=== PATIENT | female | born 1955 | race Caucasian/White ===

== ENCOUNTER → 2016-11-01 | Outpatient (CLI) | payer MEDICARE ==
--- NOTE | 2016-11-01 18:46 | CT ---
EXAMINATION TYPE: CT chest w con DATE OF EXAM: 11/01/2016 6:22 PM COMPARISON: 07/31/2016 HISTORY: Follow-up breast cancer. CT DLP: 309.00 mGycm Automated exposure control for dose reduction was used. CONTRAST: CT scan of the chest is performed with IV Contrast, patient injected with 100 mL of Omnipaque 300. FINDINGS: There is mild pleural thickening on the right lateral chest wall. There is no sign of a pulmonary mas s. There is no pleural effusion. Heart is enlarged. There are no hilar masses. I see no filling defec ts in the pulmonary arteries. There is no pericardial effusion. Thoracic aorta is atheromatous. There is no evidence of aortic dissection. There is no mediastinal adenopathy. There is mild linear densit y in the lingula left upper lobe. There is a 2 cm rounded hypodensity in the left lobe of the liver w ith surrounding enhancement. There is a similar lesion in the lateral right lobe as well. The entire liver is not included on this exam. Left mastectomy is noted. I see no bony destructive process. Ther e are numerous osteoblastic changes in the thoracic vertebra. IMPRESSION: Osteoblastic changes in the thoracic spine similar to old exam. There is a 2 cm rounded lesion in the superior left lobe of the liver that is increased compared to l ast CT scan and suggestive of metastatic disease. There is a similar appearing 2 cm rounded lesion in the lateral right lobe of the liver also consistent with metastatic disease. Stable bilateral pleural and pulmonary infiltrates compared to old exam.
== END | disposition home or self-care (01) ==
LOC: RADCTMAIN 16:40
PROVIDERS: ATTEND Internal Medicine Hematology & Oncology
DX: C50.919 Malignant neoplasm of unspecified site of unspecified female breast (principal); R91.8 Other nonspecific abnormal finding of lung field
CPT/HCPCS: 71260; Q9967

== ENCOUNTER → 2017-01-21 | Outpatient (CLI) | payer MEDICARE ==
[2017-01-21 11:04] LABS: Blood Urea Nitrogen 12 mg/dL (7-17); Non-African American GFR(MDRD) >60 (>60 ml/min/1.73 sqM)
--- NOTE | 2017-01-21 12:58 | CT ---
EXAMINATION TYPE: CT ChestAbdPelvis w con DATE OF EXAM: 01/21/2017 12:36 PM COMPARISON: 11/01/2016 and 07/31/2016 HISTORY: 61-year-old female with bilateral Breast CA TECHNIQUE: Contiguous axial scanning of the chest, abdomen, and pelvis performed with IV Contrast, pa tient injected with 100 mL of Omnipaque 300. Delayed images through the kidneys were obtained. Justice l/sagittal reconstructions performed. CT DLP: 407.9 mGycm Automated exposure control for dose reduction was used. FINDINGS: CHEST: The patient is status post bilateral mastectomies. Heart is upper limits of normal in size without pericardial effusion. Mild coronary vessel calcificat ions are present. Variant direct takeoff of the left vertebral artery directly from the aortic arch. Mild atherosclerot ic arch calcifications. No thoracic lymphadenopathy seen. Stable pleural-parenchymal scarring at the peripheral right base. An area of pleural-based thickening along the lateral lower right lung measures 2.4 cm AP, unchanged from 07/31/2016. Stable strandy scar ring at the anterior left midlung. Mild biapical pleural-parenchymal scarring. No consolidation or pl eural effusion. ABDOMEN: A 2.1 cm hypodense lesion within the left hepatic dome has increased in size from 11/01/2016 where it measured 1.5 cm. An adjacent 1.2 cm hypodense lesion and a third 8 mm hypodense lesion left hepatic l obe are new/increased from 11/01/2016 and were not seen on 07/31/2016. A 1.3 cm hypodense lesion periph eral right liver lobe is unchanged from 11/01/2016 but larger from 07/31/2016. Portal venous system is patent. No biliary ductal dilatation. Gallbladder, right adrenal gland, right kidney with extrarenal pelvis, and left kidney appear within normal limits. The spleen and pancreas appear within normal limits. Mild thickening of the left adren al gland without discrete nodularity is unchanged. Moderate atherosclerotic calcifications within the abdominal aorta and iliac arteries without aneurys m. No dilated small bowel, free fluid, or free air. Moderate stool within the colon with oral contrast progressed to this distal transverse colon. No per icolonic inflammatory change seen. The sigmoid colon is redundant. Pelvis: Bladder is urine distended. Pelvic phleboliths are noted. Uterus is present. Prominent left parauteri ne varices again demonstrated. Both ovaries are seen. No abnormal fluid collection the pelvis or pelv ic lymphadenopathy. Bones: Diffuse osteoblastic metastases redemonstrated without appreciable change. IMPRESSION: 1. INCREASING HEPATIC METASTATIC DISEASE NOW WITH A TOTAL OF 4 LIVER LESIONS. THE LEFT HEPATIC DOME L ESION NOW MEASURES 2.1 CM, INCREASED FROM 1.5 CM ON 11/01/2016 AND 2 ADDITIONAL LEFT LOBE LESIONS ARE NEW FROM 07/31/2016. 2. STABLE PLEURAL-BASED SOFT TISSUE THICKENING ALONG THE LATERAL RIGHT LOWER LUNG COMPARED TO 07/31 MEASURING 2.4 CM. STABILITY FAVORS A BENIGN ETIOLOGY SUCH POST TREATMENT CHANGE. CONTINUED F OLLOW-UP RECOMMENDED. 3. DIFFUSE OSTEOBLASTIC METASTASES, UNCHANGED.
== END | disposition home or self-care (01) ==
LOC: RADCTMAIN 10:08
PROVIDERS: ATTEND Internal Medicine Hematology & Oncology
DX: C78.7 Secondary malignant neoplasm of liver and intrahepatic bile duct (principal); C79.51 Secondary malignant neoplasm of bone; C50.919 Malignant neoplasm of unspecified site of unspecified female breast; K76.89 Other specified diseases of liver; J98.4 Other disorders of lung
CPT/HCPCS: 82565; 84520; 71260; 74177; 36415; Q9967

== ENCOUNTER → 2017-04-29 | Outpatient (CLI) | payer MEDICARE ==
[~2017-04-29] MED LIST: DENOSUMAB 120 MG/1.7 ML VIAL SQ ONE
[2017-04-29 11:07] VITALS: BP 120/66; PULSE 70; RESP 16; TEMP 98.3
== END | disposition home or self-care (01) ==
LOC: PROCWHC3 10:31 → EDSTATUS 11:00
PROVIDERS: ATTEND Internal Medicine Hematology & Oncology
DX: C50.919 Malignant neoplasm of unspecified site of unspecified female breast (principal); Z17.0 Estrogen receptor positive status [ER+]
CPT/HCPCS: 96372; J0897

== ENCOUNTER → 2017-05-30 | Outpatient (CLI) | payer MEDICARE ==
[2017-05-30 16:48] LABS: Blood Urea Nitrogen 11 mg/dL (7-17); Non-African American GFR(MDRD) >60 (>60 ml/min/1.73 sqM)
--- NOTE | 2017-05-30 17:46 | CT ---
EXAMINATION TYPE: CT ChestAbdPelvis w con DATE OF EXAM: 05/30/2017 COMPARISON: 01/21/2017 HISTORY: Follow up breast cancer CT DLP: 472 mGycm Automated exposure control for dose reduction was used. CONTRAST: CT scan of the chest, abdomen and pelvis is performed with Oral Contrast and with IV Contrast, patien t injected with 100 mL of Omnipaque 300. FINDINGS: There is pulmonary hyperinflation consistent with COPD. There is no evidence of a pulmonary mass. The re is coarsening of interstitial markings in the anterior right upper lobe. There is some pleural thi ckening on the right lateral chest wall. There is no pleural effusion. Heart size is normal. There is no pericardial effusion. There is no mediastinal adenopathy. There are no hilar masses. Pleural thic kening on the right lateral chest wall measures up to 1 cm in thickness. There is a 2 cm hypodensity in the anterior right lobe of the liver. There is a 1.5 cm hypodensity in the anterior left lobe of the liver. There is a 1.5 cm hypodensity in the lateral inferior right lob e of the liver. There is a possible 1 mm hypodensity in the inferior left lobe of the liver. Spleen and pancreas appear normal. Bile ducts are not dilated. There is no adrenal mass. Kidneys show satisfactory contrast opacification. There is no hydronephrosi s. I see no intestinal wall thickening. There are no dilated loops. Bladder distends smoothly. There is no sign of a pelvic mass. There are numerous osteosclerotic foci in the cervical thoracic and lumb ar spine. There are numerous blastic foci also in the bony pelvis and the proximal femurs. Abdominal aorta is atheromatous. There is no compression fracture. There is a mild thoracolumbar dextroscoliosi s. There is multilevel posterior lumbar disc herniation. IMPRESSION: There is slight decrease in size of the hepatic lesions compared to last exam and consist ent with favorable treatment response. Extensive osteoblastic metastatic disease is stable. Atherosclerotic vascular disease. Stable pleural thickening on the right lateral chest wall. COPD. Th ere is stable large posterior L5-S1 disc herniation with spinal stenosis. There are smaller posterior disc herniations and the remainder of the lumbar spine.
== END | disposition home or self-care (01) ==
LOC: RADCTMAIN 16:18
PROVIDERS: ATTEND Internal Medicine Hematology & Oncology
DX: C50.919 Malignant neoplasm of unspecified site of unspecified female breast (principal); K76.9 Liver disease, unspecified; I70.90 Unspecified atherosclerosis; J92.9 Pleural plaque without asbestos; J44.9 Chronic obstructive pulmonary disease, unspecified
CPT/HCPCS: 82565; 84520; 71260; 74177; 36415; Q9967

== ENCOUNTER → 2017-07-29 | Outpatient (CLI) | payer MEDICARE ==
[2017-07-29 15:06] VITALS: BP 124/64; PULSE 75; RESP 16; TEMP 97.9
== END | disposition home or self-care (01) ==
LOC: PROCWHC3 14:56
PROVIDERS: ATTEND Internal Medicine Hematology & Oncology
DX: C50.919 Malignant neoplasm of unspecified site of unspecified female breast (principal)
CPT/HCPCS: 96372; J0897

== ENCOUNTER → 2017-10-29 | Outpatient (CLI) | payer MEDICARE ==
[2017-10-29 14:13] VITALS: BP 86/56; PULSE 78; RESP 18; TEMP 98.1
== END | disposition home or self-care (01) ==
LOC: PROCWHC3 13:49 → EDSTATUS 14:00
PROVIDERS: ATTEND Internal Medicine Hematology & Oncology
DX: C50.919 Malignant neoplasm of unspecified site of unspecified female breast (principal); Z17.0 Estrogen receptor positive status [ER+]
CPT/HCPCS: 96372; J0897

== ENCOUNTER → 2017-12-01 | Outpatient (CLI) | payer MEDICARE ==
[2017-12-01 12:36] LABS: Blood Urea Nitrogen 16 mg/dL (7-17)
--- NOTE | 2017-12-01 14:02 | CT ---
EXAMINATION TYPE: CT ChestAbdPelvis w con DATE OF EXAM: 12/01/2017 COMPARISON: 05/30/2017 and 01/21/2017 HISTORY: 62 year-old female history of breast cancer, suspect metastases, follow-up up scan. TECHNIQUE: Contiguous axial scanning of the chest, abdomen, and pelvis performed with IV Contrast, pa tient injected with 100 mL of Omnipaque 300. Delayed images through the kidneys were obtained. Justice l/sagittal reconstructions performed. CT DLP: 428.5 mGycm Automated exposure control for dose reduction was used. FINDINGS: Chest: Status post bilateral mastectomies. Heart upper limits of normal in size without pericardial effusion. Mild coronary vessel calcification s are present. Aorta normal caliber airway. Direct takeoff of the left vertebral artery directly from the aortic arc h. Mild atherosclerotic arch calcifications are present. No thoracic lymphadenopathy by CT size criteria. Chronic soft tissue thickening along the right cardiophrenic angle at the lung base, subpleural inter stitial densities mid to lower right lung anteriorly and in the inferior lingula suggesting prior rad iation therapy changes. There is mild centrilobular emphysema without consolidation or pleural effusion. ABDOMEN: Numerous new hepatic masses numbering approximately 10-15, the largest areas confluent along the ante rior hepatic dome measuring up to 6.4 cm, axial image 53. Second largest area in the left hepatic dom e measuring 4.1 cm. Largest lesion in the right liver lobe measures 3.2 cm. Portal venous system is patent. No biliary ductal dilatation. Similar mild thickening of the left adrenal gland without discrete nodularity. Gallbladder, right adrenal gland, kidneys, spleen, and pancreas appear within normal limits. Moderate atherosclerotic calcifications infrarenal abdominal aorta and common iliac arteries. No aneu rysm. No mesenteric or retroperitoneal lymphadenopathy. Oral contrast progressed to the splenic flexure. There is moderate stool in the left hemicolon. Mild circumferential wall thickening of the mid sigmoid probably relates to underdistention. Prominent left periuterine varices. Ovaries are visualized as is the uterus. No abnormal fluid collec tion in the pelvis or pelvic lymphadenopathy seen. Bones: Numerous sclerotic lesions throughout the osseous structures are unchanged. Degenerative changes lowe r lumbar spine. IMPRESSION: 1. DISEASE PROGRESSION WITH INCREASE IN SIZE AND NUMBER OF MULTIPLE HEPATIC METASTASES MEASURING UP T O 6.4 CM NOW VERSUS 1.5 CM, PREVIOUSLY. 2. STABLE OSSEOUS METASTATIC DISEASE. 3. STATUS POST BILATERAL MASTECTOMIES. RETICULAR CHANGES IN THE UNDERLYING LUNGS SUGGEST PRIOR RADIAT ION THERAPY CHANGE. 4. INCIDENTAL: PROMINENT LEFT PARAUTERINE VARICES CAN BE SEEN IN THE SETTING OF PELVIC CONGESTION SYN DROME.
== END | disposition home or self-care (01) ==
LOC: RADCTMAIN 11:39
PROVIDERS: ATTEND Internal Medicine Hematology & Oncology
DX: C50.919 Malignant neoplasm of unspecified site of unspecified female breast (principal); C78.7 Secondary malignant neoplasm of liver and intrahepatic bile duct; C79.51 Secondary malignant neoplasm of bone; R91.8 Other nonspecific abnormal finding of lung field; Z90.13 Acquired absence of bilateral breasts and nipples; Z88.8 Allergy status to other drugs, medicaments and biological substances; Z88.6 Allergy status to analgesic agent; Z88.0 Allergy status to penicillin
CPT/HCPCS: 82565; 84520; 71260; 74177; 36415; Q9967

== ENCOUNTER → 2017-12-05 | Outpatient (CLI) | payer MEDICARE ==
--- NOTE | 2017-12-05 13:43 | XR ---
EXAMINATION TYPE: XR mandible complete DATE OF EXAM: 12/05/2017 COMPARISON: NONE HISTORY: Pain TECHNIQUE: 5 views FINDINGS: Mandible appears intact. No destructive changes. No acute fracture. Mandible are without teeth. No acute fracture. No dislocation. IMPRESSION: No acute fracture or diagnostic evidence of metastases. There is air within the oral cavi ty on the lateral view which may correspond to the soft tissue ulceration reported by history.
== END | disposition home or self-care (01) ==
LOC: RADXRMAIN 13:04
PROVIDERS: ATTEND Internal Medicine Hematology & Oncology
DX: C50.919 Malignant neoplasm of unspecified site of unspecified female breast (principal); L27.1 Localized skin eruption due to drugs and medicaments taken internally; K12.31 Oral mucositis (ulcerative) due to antineoplastic therapy; J44.1 Chronic obstructive pulmonary disease with (acute) exacerbation
CPT/HCPCS: 70110

== ENCOUNTER → 2017-12-05 | Outpatient (CLI) | payer MEDICARE ==
--- NOTE | 2017-12-05 21:49 | MR ---
EXAMINATION TYPE: MR brain wo/w con DATE OF EXAM: 12/05/2017 COMPARISON: NONE HISTORY: Headaches and breast cancer TECHNIQUE: Multiplanar, multisequence images of the brain and brainstem is performed without and with IV contras t, utilizing 4 mL intravenous Gadavist . FINDINGS: Diffusion weighted images demonstrate no evidence of a recent infarct or other diffusion ab normality. There is no extra-axial fluid collection or significant white matter signal abnormality. The ventricular system and cisternal spaces are compatible with mild degenerative change. Changes of chronic sinusitis are noted. There is normal enhancement of the vasculature. There is a single focus of abnormal signal within the white matter measuring 3 mm within the left par ietal lobe likely in the basis of remote ischemia. No enhancement Craniocervical junction is maintained. Sella turcica has a normal appearance. There is a extradural enhancing mass paracentrally to the left along the superior margin of the left parietal lobe. Measures approximately 1.4 x 1.2 cm. IMPRESSION: 1. There is a 1.4 x 1.2 cm extradural enhancing mass along the superior margin of the left parietal l obe parasagittally to the left. Abuts the anterior interhemispheric fissure. Most likely related to a small meningioma. However, given the patient's history of malignancy recommend a short-term follow-u p to confirm stability as occasionally a dural metastases could have a similar appearance and is not excluded.
== END | disposition home or self-care (01) ==
LOC: RADMRIMAIN 20:29
PROVIDERS: ATTEND Internal Medicine Hematology & Oncology
DX: G93.89 Other specified disorders of brain (principal); I69.998 Other sequelae following unspecified cerebrovascular disease; R68.84 Jaw pain
CPT/HCPCS: 70553; A9581

== ENCOUNTER → 2018-01-12 | Outpatient (CLI) | payer MEDICARE ==
--- NOTE | 2018-01-12 15:30 | XR ---
Facial bones HISTORY: Swelling 3 views of the facial bones, correlation to mandible 12/05/2017 Bone mineralization is maintained. Orbits are intact. No fracture or dislocation. No air-fluid level in the paranasal sinuses to suggest acute sinusitis. Patient is edentulous. Soft tissue swelling not well seen. IMPRESSION: CT scan may be of increased sensitivity.
== END | disposition home or self-care (01) ==
LOC: RADXRMAIN 14:54
PROVIDERS: ATTEND Nurse Practitioner Adult Health
DX: C50.919 Malignant neoplasm of unspecified site of unspecified female breast (principal); K12.31 Oral mucositis (ulcerative) due to antineoplastic therapy; J44.1 Chronic obstructive pulmonary disease with (acute) exacerbation; L27.1 Localized skin eruption due to drugs and medicaments taken internally
CPT/HCPCS: 70150

== ENCOUNTER → 2018-01-28 | Outpatient (CLI) | payer MEDICARE ==
--- NOTE | 2018-01-29 06:52 | MR ---
EXAMINATION TYPE: MR brain/cspine wo/w DATE OF EXAM: 01/28/2018 COMPARISON: MRI brain December 05, 2017. Nuclear medicine bone scan July 31, 2016. CT chest abdomen a nd pelvis December 01, 2017. HISTORY: History of breast cancer and meningioma brain per order. Symptoms of headaches with dizzines s or hearing loss and neck pain per patient. TECHNIQUE: Multiplanar, multisequence images of the cervical spine, brain, and brainstem are all performed witho ut and with IV contrast, utilizing 4.5 mL intravenous Gadavist . FINDINGS: BRAIN: Diffusion weighted images demonstrate no evidence of a recent infarct or other diffusion abnormality. There is no worrisome extra-axial fluid collection. There is ventricular and sulcal prominence cons istent with mild diffuse age related cerebral atrophy redemonstrated. There are few scattered foci of T2 hyperintensity throughout the white matter again seen, less than 5 lesions are present, there is stable 4 mm posterior left frontal lesion axial image 21 redemonstrated. Midline structures demonstrate normal morphology. The craniocervical junction appears within normal limits. Post contrast images redemonstrate left parasagittal homogeneous enhancing lesion seen best axial image 20 and sagittal image 69 measuring 1.3 cm AP diameter by 1.0 cm transversely consistent w ith small meningioma. No new enhancing lesions are evident. The dural venous sinuses appear patent. T here is mucous retention cyst or polyp in inferior right maxillary sinus redemonstrated. Remainder pa ranasal sinuses are clear. The globes are intact bilaterally. IMPRESSION: Stable 1.3 cm small left parasagittal enhancing lesion favoring meningioma. No new enhanc ing lesions are seen. C-SPINE: FINDINGS: Sagittal images of the cervical spine show the craniocervical junction to appear within nor mal limits. The cervical and upper thoracic spinal cord is normal in course, caliber, and signal. Th ere is levoconvex scoliosis centered in the upper thoracic spine. There is slight grade 1 retrolisthe sis of C5 on C6 and C6 on C7. The vertebral body heights are normal. There is mild disc space narro wing C5-C6 level. There is more moderate disc space narrowing C6-C7 level. Posterior disc herniations are seen at these levels on sagittal images effacing anterior thecal sac. There is hemangioma noted involving the posterior inferior C5 vertebra sagittal image 4. There are multiple round lesions of lo w T1 and T2 hyperintensity without enhancement that correspond to sclerotic metastatic bony lesions m ost prominent in the lower cervical and visualized thoracic spine, largest lesion is anteriorly at T2 level on sagittal image 5. Axial images show the C2-C3 and C3-C4 levels to appear within normal limits. Axial images at C4-C5 level show some uncovertebral facet degenerative changes bilaterally but spinal canal is preserved and bilateral neural foramina are patent. Axial images at C5-C6 level shows central disc protrusion effacing anterior thecal sac. There is unco vertebral facet degenerative changes bilaterally causing mild left greater than right bilateral neura l foraminal narrowing. Axial images at C6-C7 level shows central disc protrusion effacing anterior thecal sac and causing mi [id number] bilateral neural foraminal narrowing. Axial images at C7-T1 level are felt within normal limits. IMPRESSION: Known osseous metastatic disease redemonstrated most prominent in the lower cervical spin e. Multilevel degenerative changes are seen most prominent at C5-C6 and C6-C7 levels as detailed abov e.
== END | disposition home or self-care (01) ==
LOC: RADMRIMAIN 09:05
PROVIDERS: ATTEND Internal Medicine Hematology & Oncology
DX: C79.51 Secondary malignant neoplasm of bone (principal); C50.919 Malignant neoplasm of unspecified site of unspecified female breast; G93.9 Disorder of brain, unspecified; M47.812 Spondylosis without myelopathy or radiculopathy, cervical region
CPT/HCPCS: 70553; 72156; A9581

== ENCOUNTER → 2018-04-22 | Outpatient (CLI) | payer MEDICARE ==
[2018-04-22 08:30] LABS: Blood Urea Nitrogen 15 mg/dL (7-17)
--- NOTE | 2018-04-22 11:06 | CT ---
EXAMINATION TYPE: CT abdomen pelvis w con DATE OF EXAM: 04/22/2018 HISTORY: Breast Cancer CT DLP: 342.20mGycm Automated Exposure Control for Dose Reduction was Utilized. CONTRAST: CT scan of the abdomen and pelvis is performed with oral and with IV Contrast, patient injected with 100 ml mL of Isovue 300. COMPARISON: Prior CT chest abdomen pelvis December 01, 2017 and older studies. FINDINGS: LUNG BASES: Subpleural scarring anteriorly right lung base is redemonstrated. There is additional analisa ear scarring and/or atelectasis anteriorly in both bases redemonstrated. There is trace right pleural fluid anteriorly again seen above diaphragm LIVER/GB: Marked interval improvement in metastatic liver disease from most recent CT. For reference lateral segment left hepatic lobe lesion measures 10 mm long axis anteriorly axial image 15 versus 2. 5 cm prior study image 55. In the region of the interlobar fissure there is more regular low dense le blaze involving left hepatic lobe superior aspect axial image 13 at site of largest lobulated hypodens e lesion on prior exam. Right hepatic lobe lesion laterally measures 1.4 cm on long axis axial image 22 versus 3.3 cm on prior study. PANCREAS: No significant abnormality is seen. SPLEEN: No significant abnormality is seen. ADRENALS: Slight thickening to left adrenal gland is unchanged from several prior studies presumed be nign hyperplasia KIDNEYS: No significant abnormality is seen. BOWEL: Oral contrast reaches level of terminal ileum. There is no suspicious small or large bowel dil atation. There is mild to moderate prominence of fecal material throughout the right left and transve rse colon. UTERUS/ADNEXA: Prominent draining left ovarian veins on prior study are less prominent on current yeison dy. LYMPH NODES: No greater than 1cm abdominal or pelvic lymph nodes are appreciated. OSSEOUS STRUCTURES: There is moderate to advanced disc space narrowing L5-S1 level with vacuum disc p henomenon. Posterior disc herniations L2-L3 through L5-S1 levels on sagittal images 53 and 54 are red emonstrated. There is facet arthropathy lower lumbar levels. Scattered sclerotic foci consistent with known osseous metastatic disease are redemonstrated without significant interval change with multifo rachel involvement of visualized spine and pelvis redemonstrated. OTHER: There is moderate to severe atherosclerotic change of aorta extending into pelvic branch vesse ls. IMPRESSION: Positive treatment response with diminished size and number of hepatic metastatic lesions . Stable osseous metastatic disease..
== END | disposition home or self-care (01) ==
LOC: RADCTMAIN 07:57
PROVIDERS: ATTEND Internal Medicine Hematology & Oncology
DX: C78.7 Secondary malignant neoplasm of liver and intrahepatic bile duct (principal); C79.51 Secondary malignant neoplasm of bone; C50.919 Malignant neoplasm of unspecified site of unspecified female breast; Z88.0 Allergy status to penicillin; Z88.6 Allergy status to analgesic agent; Z91.040 Latex allergy status
CPT/HCPCS: 82565; 84520; 74177; 36415; Q9967

== ENCOUNTER 2018-07-04 09:54 | Inpatient (IN) | payer MEDICARE ==
[2018-07-04] MEDS ORDERED: LEVOFLOXACIN 750MG-D5W PMX 750 MG in DEXTROSE/WATER 1 150ML.BAG IVPB STA (10:34)
[2018-07-04] MEDS ORDERED: HYDROmorphone 1 MG/ML 1 ML SYRINGE IVP STA (10:36)
--- NOTE | 2018-07-04 10:39 | ED ---
General Adult HPI - General Chief complaint: Abdominal Pain Stated complaint: Abdominal pain Time Seen by Provider: 07/04/18 10:00 Source: patient, RN notes reviewed Mode of arrival: ambulatory Limitations: no limitations - History of Present Illness Initial comments: This is a 63-year-old female who was diagnosed with breast cancer 4 and a half years ago. Patient states she recently was started on another chemotherapy regime which she completed one month ago. Patient comes in today because of a 2 day history of right upper quadrant abdominal pain with increased pain with breathing. Patient states she's not really short of breath at all it just hurts to take a deep breath. Patient states she's had a thoracentesis in the past for increased fluid. Patient states she has had some nausea but no vomiting. Patient denies diarrhea. Patient states she also had a fever last night of 101. Patient states she has a little bit of a cough but nothing significant. Patient denies any dysuria hematuria urinary frequency. Patient denies any injury trauma. - Related Data Home Medications Medication Instructions Recorded Confirmed No Known Home Medications 07/04/18 07/04/18 Allergies Allergy/AdvReac Type Severity Reaction Status Date / Time aspirin Allergy Swelling Verified 07/04/18 10:48 latex Allergy Rash/Hives Verified 07/04/18 10:48 Penicillins Allergy Swelling Verified 07/04/18 10:48 Review of Systems ROS Statement: Those systems with pertinent positive or pertinent negative responses have been documented in the HPI. ROS Other: All systems not noted in ROS Statement are negative. Past Medical History Past Medical History: Cancer Additional Past Medical History / Comment(s): constipation, chronic back pain, post menopausal. Breast CA, found lump left breast 2 years ago, did not have work up until this year, current right pleural effusion. History of Any Multi-Drug Resistant Organisms: None Reported Past Surgical History: Tonsillectomy, Tubal Ligation Additional Past Surgical History / Comment(s): breast biopsy, thoracentesis 01/31 Past Psychological History: Anxiety Smoking Status: Former smoker Past Alcohol Use History: None Reported Past Drug Use History: None Reported - Past Family History Mother Family Medical History: Cancer Additional Family Medical History / Comment(s): mother breast and uterine CA General Exam - General Exam Comments Initial Comments: GENERAL: Patient is well-developed and well-nourished. Patient is nontoxic and well- hydrated and is in moderate distress. ENT: Neck is soft and supple. No significant lymphadenopathy is noted. Oropharynx is clear. Moist mucous membranes. Neck has full range of motion without eliciting any pain. EYES: The sclera were anicteric and conjunctiva were pink and moist. Extraocular movements were intact and pupils were equal round and reactive to light. Eyelids were unremarkable. PULMONARY: Unlabored respirations. Good breath sounds bilaterally. No audible rales rhonchi or wheezing was noted. CARDIOVASCULAR: There is a regular rate and rhythm without any murmurs gallops or rubs. ABDOMEN: Patient has right upper quadrant abdominal pain with rebound. SKIN: Skin is clear with no lesions or rashes and otherwise unremarkable. NEUROLOGIC: Patient is alert and oriented x3. Cranial nerves II through XII are grossly intact. Motor and sensory are also intact. Normal speech, volume and content. Symmetrical smile. MUSCULOSKELETAL: Normal extremities with adequate strength and full range of motion. LYMPHATICS: No significant lymphadenopathy is noted PSYCHIATRIC: Normal psychiatric evaluation. Limitations: no limitations Course Vital Signs 07/04/18 07/04/18 09:56 11:10 Temperature 97.7 F Pulse Rate 120 H 94 Respiratory 22 18 Rate Blood Pressure 112/66 131/63 O2 Sat by Pulse 100 100 Oximetry Medical Decision Making - Medical Decision Making EKG shows a sinus rhythm at 90 bpm SD interval is 252 QRS is 74 QT interval 342 QTC is 436. Patient's EKG shows some very slight ST depression in the inferior leads as well as precordial leads V3 through V6. CAT scan of the abdomen and pelvis showed free fluid in the pelvis as well as extensive metastatic disease to the liver which was markedly increased compared to the previous CAT scan. CAT scan of the chest showed no pulmonary was about a right-sided pleural effusion. Patient continued to have right upper quadrant abdominal pain. I spoke with Dr. Sanchez he agreed to admit the patient admitted the patient [facility] [place] and [facility] agreed to admit the patient. - Lab Data Result diagrams: 07/04/18 10:49 07/04/18 10:49 Lab Results 07/04/18 07/04/18 07/04/18 Range/Units 10:49 10:49 10:49 WBC 20.1 H (3.8-10.6) k/uL RBC 4.27 (3.80-5.40) m/uL Hgb 12.9 (11.4-16.0) gm/dL Hct 40.4 (34.0-46.0) % MCV 94.8 (80.0-100.0) fL MCH 30.2 (25.0-35.0) pg MCHC 31.9 (31.0-37.0) g/dL RDW 15.1 (11.5-15.5) % Plt Count 471 H (150-450) k/uL Neutrophils % 88 % Lymphocytes % 6 % Monocytes % 5 % Eosinophils % 0 % Basophils % 0 % Neutrophils # 17.7 H (1.3-7.7) k/uL Lymphocytes # 1.1 (1.0-4.8) k/uL Monocytes # 1.0 (0-1.0) k/uL Eosinophils # 0.1 (0-0.7) k/uL Basophils # 0.1 (0-0.2) k/uL Hypochromasia Slight PT (9.0-12.0) sec INR (<1.2) APTT (22.0-30.0) sec Sodium 135 L (137-145) mmol/L Potassium 4.7 (3.5-5.1) mmol/L Chloride 96 L (98-107) mmol/L Carbon Dioxide 24 (22-30) mmol/L Anion Gap 15 mmol/L BUN 18 H (7-17) mg/dL Creatinine 0.61 (0.52-1.04) mg/dL Est GFR (CKD-EPI)AfAm >90 (>60 ml/min/1.73 sqM) Est GFR (CKD-EPI)NonAf >90 (>60 ml/min/1.73 sqM) Glucose 153 H (74-99) mg/dL Plasma Lactic Acid Will (0.7-2.0) mmol/L Calcium 9.6 (8.4-10.2) mg/dL Total Bilirubin 2.8 H (0.2-1.3) mg/dL AST 87 H (14-36) U/L ALT 87 H (9-52) U/L Alkaline Phosphatase 420 H (38-126) U/L Total Creatine Kinase 63 (30-135) U/L CK-MB (CK-2) <0.2 (0.0-2.4) ng/mL CK-MB (CK-2) Rel Index Troponin I <0.012 (0.000-0.034) ng/mL Total Protein 7.0 (6.3-8.2) g/dL Albumin 4.3 (3.5-5.0) g/dL 07/04/18 07/04/18 Range/Units 10:49 10:49 WBC (3.8-10.6) k/uL RBC (3.80-5.40) m/uL Hgb (11.4-16.0) gm/dL Hct (34.0-46.0) % MCV (80.0-100.0) fL MCH (25.0-35.0) pg MCHC (31.0-37.0) g/dL RDW (11.5-15.5) % Plt Count (150-450) k/uL Neutrophils % % Lymphocytes % % Monocytes % % Eosinophils % % Basophils % % Neutrophils # (1.3-7.7) k/uL Lymphocytes # (1.0-4.8) k/uL Monocytes # (0-1.0) k/uL Eosinophils # (0-0.7) k/uL Basophils # (0-0.2) k/uL Hypochromasia PT 10.7 (9.0-12.0) sec INR 1.1 (<1.2) APTT 25.9 (22.0-30.0) sec Sodium (137-145) mmol/L Potassium (3.5-5.1) mmol/L Chloride (98-107) mmol/L Carbon Dioxide (22-30) mmol/L Anion Gap mmol/L BUN (7-17) mg/dL Creatinine (0.52-1.04) mg/dL Est GFR (CKD-EPI)AfAm (>60 ml/min/1.73 sqM) Est GFR (CKD-EPI)NonAf (>60 ml/min/1.73 sqM) Glucose (74-99) mg/dL Plasma Lactic Acid Will 3.5 H* (0.7-2.0) mmol/L Calcium (8.4-10.2) mg/dL Total Bilirubin (0.2-1.3) mg/dL AST (14-36) U/L ALT (9-52) U/L Alkaline Phosphatase (38-126) U/L Total Creatine Kinase (30-135) U/L CK-MB (CK-2) (0.0-2.4) ng/mL CK-MB (CK-2) Rel Index Troponin I (0.000-0.034) ng/mL Total Protein (6.3-8.2) g/dL Albumin (3.5-5.0) g/dL Disposition Clinical Impression: Metastatic breast cancer, Abdominal pain, Fever, Pleural effusion Disposition: ADMITTED IP TO THIS HOSP Referrals: Ray Ruth DO [Primary Care Provider] - 1-2 days Time of Disposition: 12:56
[2018-07-04] MEDS: ONDANSETRON 4 MG/2 ML VIAL IVP STA ×2 (11:04→12:42)
[2018-07-04 11:07] LABS: Basophils # (A) 0.1 k/uL (0-0.2); Basophils % (A) 0 %; Eosinophils # (A) 0.1 k/uL (0-0.7); Eosinophils % (A) 0 %; HCT 40.4 % (34.0-46.0); HGB 12.9 gm/dL (11.4-16.0); Hypochromasia Slight; Lymphocytes # (A) 1.1 k/uL (1.0-4.8); Lymphocytes % (A) 6 %; MCH 30.2 pg (25.0-35.0); MCHC 31.9 g/dL (31.0-37.0); MCV 94.8 fL (80.0-100.0); Mean Platelet Volume 6.4; Monocytes % (A) 5 %; Neutrophils # (A) 17.7 k/uL (1.3-7.7); Neutrophils % (A) 88 %; Platelet Count 471 k/uL (150-450); RBC 4.27 m/uL (3.80-5.40); RDW 15.1 % (11.5-15.5); WBC 20.1 k/uL (3.8-10.6)
[2018-07-04 11:15] LABS: ALT 87 U/L (9-52); AST 87 U/L (14-36); Albumin 4.3 g/dL (3.5-5.0); Alkaline Phosphatase 420 U/L (38-126); Anion Gap 15 mmol/L; Blood Urea Nitrogen 18 mg/dL (7-17); Calcium 9.6 mg/dL (8.4-10.2); Carbon Dioxide 24 mmol/L (22-30); Chloride 96 mmol/L (98-107); Glucose 153 mg/dL (74-99); Potassium 4.7 mmol/L (3.5-5.1); Sodium 135 mmol/L (137-145); Total Bilirubin 2.8 mg/dL (0.2-1.3)
[2018-07-04 11:21] LABS: INR 1.1 (<1.2); Partial Thromboplastin Time 25.9 sec (22.0-30.0); Prothrombin Time 10.7 sec (9.0-12.0)
[2018-07-04 11:28] LABS: Creatine Kinase 63 U/L (30-135)
[2018-07-04 11:39] LABS: Creatine Kinase MB <0.2 ng/mL (0.0-2.4); Troponin I <0.012 ng/mL (0.000-0.034)
--- NOTE | 2018-07-04 12:24 | CT ---
EXAMINATION TYPE: CT angio chest, CT abdomen pelvis w con DATE OF EXAM: 07/04/2018 11:55 AM COMPARISON: Previous study dated 12/01/[address] scan of the abdomen and pelvis dated 04/22/2018. HISTORY: RUQ pain CT DLP: 84.9 (accession [id number]), 1158.9 (accession [id number]) mGycm Automated exposure control for dose reduction was used. CONTRAST: CTA scan of the thorax is performed with IV Contrast, patient injected with 100 mL of Isovue 370, pul monary embolism protocol. . FINDINGS: There is scarring at the right lung apex. There is pleural thickening and interstitial woods ge in the right middle lobe which may be secondary to post radiation change. There have been bilatera l mastectomies. There is been interval development of a right-sided pleural effusion. There is no significant axillary, internal mammary, mediastinal or hilar adenopathy. There is no evidence of pulmonary embolus. The aorta is normal in caliber without evidence of dissection. Heart size upper limits of normal. The re is no pericardial fluid. There are extensive blastic metastases throughout the vertebra and ribs. These appear relatively stab le compared to previous. There are also blastic metastases of both clavicles and scapula bilaterally. There is also metastatic disease in the pelvis. Within the abdomen, there are extensive metastases within all segments of the liver. These has increa sed markedly from previous. The liver is enlarged measuring 21 cm. The gallbladder is unremarkable. T he spleen is normal in size. There is some fullness in the left adrenal gland, unchanged from previous. There is no definite nodul e. There is a 1 cm low attenuating lesion in the lower pole of the right kidney which does not meet the requirements of simple cyst. This was less obvious on the previous study. The pancreas is unremarkable. There is moderate atheromatous calcification of the visualized arterial tree There is no significant retrocrural peritoneal, iliac or inguinal adenopathy. The uterus and ovaries are not visualized. The bladder is not distended. There is no significant diverticular change and I do not see radiographic evidence of diverticulitis. The appendix is not visualized with certainty. Small bowel loops are normal in caliber. There is a large amount of free fluid in the pelvis. No free air is seen. IMPRESSION: 1. THIS EXAMINATION IS NEGATIVE FOR PULMONARY EMBOLUS. 2. EXTENSIVE METASTATIC DISEASE. THIS HAS MARKEDLY WORSENED WITHIN THE LIVER. 3. INTERVAL DEVELOPMENT OF A RIGHT-SIDED PLEURAL EFFUSION. 4. 1 CM, LOW ATTENUATING LESION IN THE LOWER POLE OF THE RIGHT KIDNEY OF QUESTIONABLE ETIOLOGY. THIS DOES NOT MEET THE REQUIREMENTS OF A SIMPLE CYST. 5. LARGE AMOUNT OF FREE FLUID WITHIN THE PELVIS.
--- NOTE | 2018-07-04 12:31 | XR ---
EXAMINATION TYPE: XR chest 2V DATE OF EXAM: 07/04/2018 HISTORY: Fever. REFERENCE: Previous study dated 02/10/2014. FINDINGS: Lung volumes are prominent. There is a small right-sided pleural effusion. There are chroni c interstitial changes. The heart is mildly prominent. IMPRESSION: 1. COPD. 2. MILD CARDIOMEGALY. 3. SMALL RIGHT-SIDED EFFUSION. 4. CHRONIC INTERSTITIAL CHANGE.
[2018-07-04] MEDS ORDERED: SODIUM CHLORIDE 0.9% 1,000 ML IV ONE (12:56)
[2018-07-04 13:24] LABS: Appearance,Urine Clear (Clear); Bilirubin,Urine Negative (Negative); Blood,Urine Negative (Negative); Cellular Casts,Urine 5 /lpf (0); Color,Urine Yellow; Glucose,Urine (UA) Negative (Negative); Hyaline Casts,Urine 4 /lpf (0-2); Ketones,Urine 1+ (Negative); Leukocyte Esterase,Urine Negative (Negative); Mucus,Urine Rare /hpf; Nitrite,Urine Negative (Negative); Protein,Urine 1+ (Negative); RBC,Urine 2 /hpf (0-5); Squamous Epithelial Cell,Urine 1 /hpf (0-4); WBC,Urine 7 /hpf (0-5)
[2018-07-04 13:50] LABS: Specific Gravity,Urine >1.050 (1.001-1.035)
[2018-07-04] MEDS: MORPHINE SULFATE 4 MG/ML SYRINGE IVP PRN (19:51)
[2018-07-05] MEDS: MORPHINE SULFATE 4 MG/ML SYRINGE IVP PRN ×4 (02:00→22:01)
--- NOTE | 2018-07-05 10:09 | P.CONS ---
History of Present Illness - Reason for Consult Consult date: 07/05/18 Intractable abdominal pain. Metastatic breast cancer - History of Present Illness The patient is a 63-year-old white female, well known to our service. She is followed by Dr. Trinidad in the outpatient setting for metastatic breast cancer. About December 2013 patient noted a right chest lesion and a left breast lump, she had biopsy of a left shoulder lesion 01/12/14 that was positive for metastatic breast adenocarcinoma, she was seen by Dr. Trinidad 01/17/14 and was told her treatment options but hormone and Her2 status were pending. While awaiting results she began having shortness of breath and on 02/02/14 she had thoracentesis with fluid cytology consistent with her breast primary. Ultimately tumor testing results showed a hormone receptor + breast cancer Her 2 negative. The patient was treated with ascites fluid drainage, and was able to discharge. She has since had multiple lines of therapy, including aromatase inhibitors and Faslodex, as well as Ibrance. After progression through those, she has been on Xeloda, and then Taxol most recently. She finished her Taxol in late . She was then placed on a chemo holiday with plans for restaging scans the end of June, with follow-up in the office subsequently. She was last seen in the office 2 weeks ago. The patient states that soon after the office visit she started experiencing some discomfort in the right upper abdomen. This became progressively worse. The pain was also worsened by attempts to take deep breaths. She had some nausea but no overt vomiting and also noted a drop in appetite with some loss of weight. Because of progression and pain which had become intractable, the patient came into the ER. She had not been taking any pain medications at home. CTA of the chest ruled out a pulmonary embolus but showed recurrent right- sided pleural effusion. It also indicated progression of disease in the liver, which is confirmed on CT of the abdomen and pelvis. The patient was therefore admitted for further management. Review of Systems Constitutional: Reports chronic pain, Reports poor appetite, Reports weakness, Reports weight loss (7-8 pounds in the last 2 weeks) Eyes: denies blurred vision, denies pain Ears: deny: decreased hearing, ear discharge, earache, tinnitus Ears, nose, mouth and throat: Denies headache, Denies sore throat Cardiovascular: Reports chest pain, Reports decreased exercise tolerance Respiratory: Reports as per HPI Gastrointestinal: Reports abdominal pain, Reports nausea Genitourinary: Denies dysuria, Denies hematuria Menstruation: Reports postmenopausal Musculoskeletal: Reports as per HPI (Known history of bone metastasis) Integumentary: Denies pruritus, Denies rash Neurological: Reports weakness, Denies numbness Psychiatric: Denies anxiety, Denies depression Endocrine: Reports fatigue, Reports weight change Hematologic/Lymphatic: Reports as per HPI Past Medical History Past Medical History: Cancer Additional Past Medical History / Comment(s): constipation, chronic back pain, post menopausal. Breast CA, found lump left breast 2 years ago, did not have work up until this year, current right pleural effusion. History of Any Multi-Drug Resistant Organisms: None Reported Past Surgical History: Tonsillectomy, Tubal Ligation Additional Past Surgical History / Comment(s): breast biopsy, thoracentesis 01/31 Past Anesthesia/Blood Transfusion Reactions: No Reported Reaction Past Psychological History: Anxiety, Depression Smoking Status: Former smoker Past Alcohol Use History: None Reported Past Drug Use History: None Reported - Past Family History Mother Family Medical History: Cancer Additional Family Medical History / Comment(s): mother breast and uterine CA Father Family Medical History: Congestive Heart Failure (CHF), Coronary Artery Disease (CAD), Diabetes Mellitus Medications and Allergies Home Medications Medication Instructions Recorded Confirmed Type No Known Home Medications 07/04/18 07/04/18 History Allergies Allergy/AdvReac Type Severity Reaction Status Date / Time aspirin Allergy Swelling Verified 07/04/18 10:48 latex Allergy Rash/Hives Verified 07/04/18 10:48 Penicillins Allergy Swelling Verified 07/04/18 10:48 Physical Exam Vitals: Vital Signs Temp Pulse Pulse Resp BP BP Pulse Ox 07/05/18 06:23 98.2 F 90 16 90/50 96 07/05/18 00:00 80 20 07/04/18 19:55 97.7 F 80 20 97/60 97 07/04/18 17:22 88 16 07/04/18 14:19 97.5 F L 88 16 113/71 96 07/04/18 13:59 98.7 F 07/04/18 13:17 85 18 101/60 96 07/04/18 11:10 94 18 131/63 100 Intake and Output 07/04/18 07/05/18 07/05/18 22:59 06:59 14:59 Intake Total 670 300 Balance 670 300 Intake: IV 450 300 Sodium Chloride 0.9% 1, 450 300 000 ml @ 75 mls/hr IV . [id number] ONE Rx#:[id number] Oral 220 Other: # Voids 2 2 - Constitutional General appearance: no acute distress - EENT Eyes: EOMI, PERRLA ENT: hearing grossly normal, normal oropharynx - Neck Neck: no lymphadenopathy - Cardiovascular Rhythm: regular Heart sounds: normal: S1, S2 - Gastrointestinal General gastrointestinal: organomegaly (Liver appears enlarged at least 2-3 fingerbreadths below costal margin), soft Localized gastrointestinal: tender: RUQ - Integumentary Integumentary: normal - Neurologic Neurologic: CNII-XII intact - Musculoskeletal Musculoskeletal: generalized weakness - Psychiatric Psychiatric: A&O x's 3, appropriate affect Results CBC & Chem 7: 07/04/18 10:49 07/04/18 10:49 Labs: Abnormal Lab Results - Last 24 Hours (Table) 07/04/18 07/04/18 07/04/18 Range/Units 10:49 10:49 10:49 WBC 20.1 H (3.8-10.6) k/uL Plt Count 471 H (150-450) k/uL Neutrophils # 17.7 H (1.3-7.7) k/uL Sodium 135 L (137-145) mmol/L Chloride 96 L (98-107) mmol/L BUN 18 H (7-17) mg/dL Glucose 153 H (74-99) mg/dL Plasma Lactic Acid Will 3.5 H* (0.7-2.0) mmol/L Total Bilirubin 2.8 H (0.2-1.3) mg/dL AST 87 H (14-36) U/L ALT 87 H (9-52) U/L Alkaline Phosphatase 420 H (38-126) U/L Ur Specific [place] (1.001-1.035) Urine Protein (Negative) Urine Ketones (Negative) Urine WBC (0-5) /hpf Hyaline Casts (0-2) /lpf Urine Mucus (None) /hpf 07/04/18 Range/Units 13:07 WBC (3.8-10.6) k/uL Plt Count (150-450) k/uL Neutrophils # (1.3-7.7) k/uL Sodium (137-145) mmol/L Chloride (98-107) mmol/L BUN (7-17) mg/dL Glucose (74-99) mg/dL Plasma Lactic Acid Will (0.7-2.0) mmol/L Total Bilirubin (0.2-1.3) mg/dL AST (14-36) U/L ALT (9-52) U/L Alkaline Phosphatase (38-126) U/L Ur Specific [place] >1.050 H (1.001-1.035) Urine Protein 1+ H (Negative) Urine Ketones 1+ H (Negative) Urine WBC 7 H (0-5) /hpf Hyaline Casts 4 H (0-2) /lpf Urine Mucus Rare H (None) /hpf Microbiology - Last 24 Hours (Table) 07/04/18 13:07 Urine Culture - Preliminary Urine,Voided Chest x-ray: report reviewed CT scan - abdomen: report reviewed CT scan - chest: report reviewed CT scan - pelvis: report reviewed Assessment and Plan (1) Neoplasm related pain Narrative/Plan: The patient developed abdominal pain about 2 weeks ago, and has had marked progression since. Imaging studies to prove that this is due to rapid progression of malignancy in the liver. The patient was not on any opioids at home. She has been started on IV morphine, and notes good relief. She will be started on fentanyl 25 g. Depending on her need for breakthrough pain medication subsequently, additional adjustments will be made. She will also be placed on a bowel protocol. Current Visit: Yes Status: Acute Code(s): G89.3 - NEOPLASM RELATED PAIN ( ACUTE) (CHRONIC) SNOMED Code(s): 189486481 (2) Metastatic breast cancer Narrative/Plan: Diagnostic and therapeutic circumstances as related in the HPI. The patient is currently on a chemo holiday with the plans for restaging studies later this month. However computed tomography scan already shows marked progression in the liver, causing her symptoms. I will therefore check tumor markers, and also order a bone scan. At discharge her follow-up with Dr. Trinidad will be moved up Current Visit: Yes Status: Acute Code(s): C50.919 - MALIGNANT NEOPLASM OF UNSP SITE OF UNSPECIFIED FEMALE BREAST SNOMED Code(s): 387409810 (3) Pleural effusion Narrative/Plan: The patient has had a thoracentesis in the past. There appears to be some recurrence of pleural effusion. However the patient was not hypoxic and physical exam was not impressive at this point. Continue to follow. If she has progressive symptoms and repeat thoracentesis will be ordered Current Visit: Yes Status: Acute Code(s): J90 - PLEURAL EFFUSION, NOT ELSEWHERE CLASSIFIED SNOMED Code(s): 27241242 Plan: The case was discussed in detail with the ER physician, and subsequently with the admitting service. Defer to the admitting service for management of her other medical problems
--- NOTE | 2018-07-05 15:49 | P.HPIM ---
History of Present Illness H&P Date: 07/05/18 Chief Complaint: Intractable abdominal pain is a 63-year-old female with a past medical history of metastatic breast cancer who follows with Dr. Trinidad in an OP setting coming to the hospital with a chief complaint of increased abdominal pain for the past couple of weeks. Patient has metastatic breast cancer with metastases to her lung and shoulder. Patient underwent multiple sessions of chemotherapy and currently on a chemo holiday. Patient started to have right upper abdominal pain that has progressively worsened associated with some nausea along with decreased appetite for the past couple of days. She states she tried to take pain medications at home that did not help her and so coming to the ER for intractable abdominal pain. Patient had CT for PE that was negative for pulmonary embolism and CT of the abdomen and pelvis showing extensive metastatic disease in the liver and increased right-sided pleural effusion and also 1 cm lesion in the lower pole of the right kidney of questionable etiology. Currently the patient has been getting IV morphine and she states her pain is under better control compared to yesterday. Oncology Dr. Sanchez has evaluated the patient today. Review of Systems REVIEW OF SYSTEMS: CONSTITUTIONAL : Loss of appetite, generalized weakness and fatigue with weight loss PSYCH: Denies anxiety or depression NEURO: Denies any weakness or numbness VASCULAR: No swelling of lower extremities HEMATOLOGIC: As per HPI. RESPIRATORY: Progressive worsening of shortness of breath INTEGUMENT: no rashes OPHTHALMOLOGIC: No blurry vision and no eye discharge : No dysuria or hematuria DIRECTOR STARS: No bleeding PV CARDIAC: No chest pain , shortness of breath , paroxysmal nocturnal dyspnea MUSCULOSKELETAL : Right shoulder pain GI: As per HPI All 13 review of systems are negative except for the ones mention above. Past Medical History Past Medical History: Cancer Additional Past Medical History / Comment(s): constipation, chronic back pain, post menopausal. Breast CA, found lump left breast 2 years ago, did not have work up until this year, current right pleural effusion. History of Any Multi-Drug Resistant Organisms: None Reported Past Surgical History: Tonsillectomy, Tubal Ligation Additional Past Surgical History / Comment(s): breast biopsy, thoracentesis 01/31 Past Anesthesia/Blood Transfusion Reactions: No Reported Reaction Past Psychological History: Anxiety, Depression Smoking Status: Former smoker Past Alcohol Use History: None Reported Past Drug Use History: None Reported - Past Family History Mother Family Medical History: Cancer Additional Family Medical History / Comment(s): mother breast and uterine CA Father Family Medical History: Congestive Heart Failure (CHF), Coronary Artery Disease (CAD), Diabetes Mellitus Medications and Allergies Home Medications Medication Instructions Recorded Confirmed Type No Known Home Medications 07/04/18 07/04/18 History Allergies Allergy/AdvReac Type Severity Reaction Status Date / Time aspirin Allergy Swelling Verified 07/04/18 10:48 latex Allergy Rash/Hives Verified 07/04/18 10:48 Penicillins Allergy Swelling Verified 07/04/18 10:48 Physical Exam Vitals: Vital Signs Temp Pulse Pulse Resp BP BP Pulse Ox 07/05/18 06:23 98.2 F 90 16 90/50 96 07/05/18 00:00 80 20 07/04/18 19:55 97.7 F 80 20 97/60 97 07/04/18 17:22 88 16 07/04/18 14:19 97.5 F L 88 16 113/71 96 07/04/18 13:59 98.7 F 07/04/18 13:17 85 18 101/60 96 07/04/18 11:10 94 18 131/63 100 07/04/18 09:56 97.7 F 120 H 22 112/66 100 Intake and Output 07/04/18 07/05/18 07/05/18 22:59 06:59 14:59 Intake Total 670 300 Balance 670 300 Intake: IV 450 300 Sodium Chloride 0.9% 1, 450 300 000 ml @ 75 mls/hr IV . [id number] ONE Rx#:[id number] Oral 220 Other: # Voids 2 2 GENERAL EXAM GEN. APPEARANCE: Alert in mild distress HEAD EXAM: Temporal wasting EYE EXAM: No pallor, no icterus ENT EXAM: Mucous membrane is dry NECK EXAM: normal inspection. Absent: tenderness, meningismus, full ROM, lymphadenopathy RESPIRATORY EXAM: Decreased breath sounds bilaterally. Bilateral crackles in the lower lung hunter. CARDIOVASCULAR EXAM: regular rate, normal rhythm, normal heart sounds. Absent : systolic murmur, diastolic murmur, rubs, gallop, clicks GI/ABDOMINAL EXAM: Abdomen is distended. Positive for tenderness in the right upper quadrant. Bowel sounds normal. EXTREMITIES EXAM: No edema. NEUROLOGICAL EXAM: alert, oriented X3, no gross focal neurological deficits PSYCHIATRIC EXAM: normal affect, normal mood SKIN EXAM: warm, dry, intact, normal color. Absent: rash Results CBC & Chem 7: 07/04/18 10:49 07/04/18 10:49 Labs: Abnormal Lab Results - Last 24 Hours (Table) 07/04/18 07/04/18 07/04/18 Range/Units 10:49 10:49 10:49 WBC 20.1 H (3.8-10.6) k/uL Plt Count 471 H (150-450) k/uL Neutrophils # 17.7 H (1.3-7.7) k/uL Sodium 135 L (137-145) mmol/L Chloride 96 L (98-107) mmol/L BUN 18 H (7-17) mg/dL Glucose 153 H (74-99) mg/dL Plasma Lactic Acid Will 3.5 H* (0.7-2.0) mmol/L Total Bilirubin 2.8 H (0.2-1.3) mg/dL AST 87 H (14-36) U/L ALT 87 H (9-52) U/L Alkaline Phosphatase 420 H (38-126) U/L Ur Specific [place] (1.001-1.035) Urine Protein (Negative) Urine Ketones (Negative) Urine WBC (0-5) /hpf Hyaline Casts (0-2) /lpf Urine Mucus (None) /hpf 07/04/18 Range/Units 13:07 WBC (3.8-10.6) k/uL Plt Count (150-450) k/uL Neutrophils # (1.3-7.7) k/uL Sodium (137-145) mmol/L Chloride (98-107) mmol/L BUN (7-17) mg/dL Glucose (74-99) mg/dL Plasma Lactic Acid Will (0.7-2.0) mmol/L Total Bilirubin (0.2-1.3) mg/dL AST (14-36) U/L ALT (9-52) U/L Alkaline Phosphatase (38-126) U/L Ur Specific [place] >1.050 H (1.001-1.035) Urine Protein 1+ H (Negative) Urine Ketones 1+ H (Negative) Urine WBC 7 H (0-5) /hpf Hyaline Casts 4 H (0-2) /lpf Urine Mucus Rare H (None) /hpf Microbiology - Last 24 Hours (Table) 07/04/18 13:07 Urine Culture - Preliminary Urine,Voided Thrombosis Risk Factor Assmnt - Choose All That Apply Each Risk Factor Represents 2 Points: Age 61-74 years Thrombosis Risk Factor Assessment Total Risk Factor Score: 2 Thrombosis Risk Factor Assessment Level: Low Risk Assessment and Plan Assessment: Assessment Intractable abdominal pain with nausea and vomiting Metastatic breast cancer Right pleural effusion Ascites Leukocytosis Thrombocytosis Cachexia Severe protein calorie malnutrition PLAN: Patient has been getting IV morphine and fentanyl patch has been added. We will resume the patient's home medications. Discussed with Dr. Sanchez this morning regarding pain management of the patient. We'll continue with IV hydration and antiemetics for her nausea and vomiting. Further recommendations to follow depending on the progress of the patient. Overall prognosis is very poor.
[2018-07-05] MEDS: DOCUSATE 100 MG CAP PO SCH ×2 (17:25→20:09)
[2018-07-06] MEDS: MORPHINE SULFATE 4 MG/ML SYRINGE IVP PRN ×5 (04:17→20:41)
[2018-07-06 08:07] LABS: Anion Gap 8 mmol/L; Blood Urea Nitrogen 12 mg/dL (7-17); Calcium 9.2 mg/dL (8.4-10.2); Carbon Dioxide 25 mmol/L (22-30); Chloride 102 mmol/L (98-107); Glucose 114 mg/dL (74-99); Sodium 135 mmol/L (137-145)
[2018-07-06 08:10] LABS: Basophils # (A) 0.1 k/uL (0-0.2); Basophils % (A) 0 %; Eosinophils # (A) 0.3 k/uL (0-0.7); Eosinophils % (A) 3 %; HCT 32.8 % (34.0-46.0); HGB 10.6 gm/dL (11.4-16.0); Lymphocytes # (A) 0.9 k/uL (1.0-4.8); Lymphocytes % (A) 7 %; MCH 30.5 pg (25.0-35.0); MCHC 32.4 g/dL (31.0-37.0); Mean Platelet Volume 7.8; Monocytes # (A) 0.7 k/uL (0-1.0); Monocytes % (A) 5 %; Neutrophils # (A) 11.1 k/uL (1.3-7.7); Neutrophils % (A) 84 %; Platelet Count 428 k/uL (150-450); RBC 3.49 m/uL (3.80-5.40); RDW 14.8 % (11.5-15.5); WBC 13.2 k/uL (3.8-10.6)
[2018-07-06 08:14] LABS: Potassium 4.9 mmol/L (3.5-5.1)
[2018-07-06] MEDS: DOCUSATE 100 MG CAP PO SCH ×2 (08:35→20:43)
[2018-07-06 11:25] VITALS: BMI 15.2
--- NOTE | 2018-07-06 11:39 | NM ---
EXAMINATION TYPE: NM bone scan whole body DATE OF EXAM: 07/06/2018 COMPARISON: Prior bone scan 07/31/2016, CT chest and abdomen pelvis 07/04/2018 HISTORY: Bone metastases, metastatic breast cancer Delayed whole-body scanning was performed following the injection of 25.3 mCi Tc 99m MDP. Images acq uired 3 hours post injection. FINDINGS: Multiple foci are present which show some increased intensity is compared to prior exam. Punctate foc i along the sternum were not seen definitively on prior exam. There is a gentle spinal curvature. Foc us of uptake is present along the anterior left fifth rib which appears more intense than prior. Upta ke is noted in the right hip is similar, uptake seen within the spine at what is likely T9, T11 was n ot seen on prior exam and corresponds to blastic foci on CT. Uptake in the left shoulder is more inte nse as compared to prior. Transverse process of T6 on the right also shows uptake as well as scleroti c appearance CT. Uptake in the cervical spine that likely to be due to facet arthropathy. Osteoarthri tic changes suspected within the hands. Question abnormal uptake within the mandible anteriorly. Soft tissue uptake is normal. IMPRESSION: There is increase in intensity and number of lesions seen on bone scan as compared to prior bone scan dated 07/31/2016. More lesions are identified on CT than on the bone scan however.
[2018-07-06] MEDS: ONDANSETRON 4 MG/2 ML VIAL IVP PRN (12:03)
[2018-07-06] MEDS: ENOXAPARIN 30 MG/0.3 ML SYRINGE SQ SCH (12:03)
[2018-07-06] MEDS ORDERED: MAGNESIUM HYDROXIDE 2,400 MG/10 ML CUP PO STA (20:50)
[2018-07-06] MEDS ORDERED: SENNOSIDES 8.6 MG TAB PO PRN (20:50)
--- NOTE | 2018-07-06 20:50 | P.PN ---
Subjective Progress Note Date: 07/06/18 Principal diagnosis: malignancy related pain Pt seen in f/u, she is nauseated this AM, her abd pain is better controlled on current analgesics. Denies headache, KALEY, cough, she has not had a BM in 3 days. Objective - Vital Signs Vital signs: Vital Signs Temp 98.6 F 07/06/18 12:05 Pulse 76 07/06/18 12:05 Resp 22 07/06/18 12:05 BP 117/69 07/06/18 12:05 Pulse Ox 94 L 07/06/18 12:05 Intake & Output 07/06/18 07/06/18 07/07/18 06:59 18:59 06:59 Intake Total 800 Balance 800 Weight 43.998 kg Intake: IV 200 Sodium Chloride 0.9% 1, 200 000 ml @ 75 mls/hr IV . [id number] ONE Rx#:[id number] Oral 600 Other: # Voids 1 2 - Constitutional General appearance: Present: cooperative, mild distress, thin - EENT Eyes: Present: anicteric sclerae ENT: Present: normal oropharynx - Respiratory Respiratory: bilateral: rales (few scattered) - Cardiovascular Heart sounds: normal: S1, S2 - Gastrointestinal Localized gastrointestinal: tender: RUQ, epigastric periumbilical - Neurologic Neurologic: Present: CNII-XII intact - Musculoskeletal Musculoskeletal: Present: strength equal bilaterally - Psychiatric Psychiatric: Present: A&O x's 3, appropriate affect, intact judgment & insight - Labs CBC & Chem 7: 07/06/18 07:15 07/06/18 07:15 Labs: Abnormal Lab Results - Last 24 Hours (Table) 07/06/18 07/06/18 07/06/18 Range/Units 07:15 07:15 07:15 WBC 13.2 H (3.8-10.6) k/uL RBC 3.49 L (3.80-5.40) m/uL Hgb 10.6 L (11.4-16.0) gm/dL Hct 32.8 L (34.0-46.0) % Neutrophils # 11.1 H (1.3-7.7) k/uL Lymphocytes # 0.9 L (1.0-4.8) k/uL Sodium 135 L (137-145) mmol/L Creatinine 0.46 L (0.52-1.04) mg/dL Glucose 114 H (74-99) mg/dL CA 15-3 Antigen 855.1 H (0.0-32.3) U/mL Microbiology - Last 24 Hours (Table) 07/04/18 10:49 Blood Culture - Preliminary Blood No Growth after 48 hours 07/04/18 13:07 Urine Culture - Final Urine,Voided Assessment and Plan (1) Metastatic breast cancer Narrative/Plan: Pt was on a brief hiatus from chemo, unfortunately she appears to have disease progression. Bone scan was pending when pt seen this AM, will discuss results with her tomorrow. Her primary Oncologist Dr. Trinidad will see her next week to discuss resuming treatment., Current Visit: Yes Status: Acute Priority: High Code(s): C50.919 - MALIGNANT NEOPLASM OF UNSP SITE OF UNSPECIFIED FEMALE BREAST SNOMED Code(s): 715949054 (2) Neoplasm related pain Narrative/Plan: Fentanyl and IV morphine being used, will convert to oral in anticipation of discharge Current Visit: Yes Status: Acute Priority: High Code(s): G89.3 - NEOPLASM RELATED PAIN (ACUTE) (CHRONIC) SNOMED Code(s): 210347381 (3) Constipation Narrative/Plan: Likely worsened by use of narcotics. Bowel regimen changed. Current Visit: Yes Status: Chronic Priority: Medium Code(s): K59.00 - CONSTIPATION, UNSPECIFIED SNOMED Code(s): 71670410 (4) Nausea Narrative/Plan: Suspect r/t constipation possibly narcotics. Antiemetic ordered. Current Visit: Yes Status: Acute Priority: High Code(s): R11.0 - NAUSEA SNOMED Code(s): 581353630 Plan: Will see pt in AM to discuss testing results and need to resume treatment Will evaluate pain, nausea and constipation interventions
--- NOTE | 2018-07-06 23:22 | P.PN ---
Subjective Progress Note Date: 07/06/18 Principal diagnosis: Intractable abdominal pain is a 63-year-old female with a past medical history of metastatic breast cancer who follows with Dr. Trinidad in an OP setting coming to the hospital with a chief complaint of increased abdominal pain for the past couple of weeks. Patient has metastatic breast cancer with metastases to her lung and shoulder. Patient underwent multiple sessions of chemotherapy and currently on a chemo holiday. Patient started to have right upper abdominal pain that has progressively worsened associated with some nausea along with decreased appetite for the past couple of days. She states she tried to take pain medications at home that did not help her and so coming to the ER for intractable abdominal pain. Patient had CT for PE that was negative for pulmonary embolism and CT of the abdomen and pelvis showing extensive metastatic disease in the liver and increased right-sided pleural effusion and also 1 cm lesion in the lower pole of the right kidney of questionable etiology. On 07/06/18 - Currently the patient has been getting IV morphine and she states her pain is under better control compared to yesterday. She did not have a bowel movement for the past 3 days. On Review of systems CONSTITUTIONAL : Loss of appetite, generalized weakness and fatigue with weight loss NEURO: Denies any weakness or numbness RESPIRATORY: Progressive worsening of shortness of breath at baseline : No dysuria or hematuria CARDIAC: No chest pain , shortness of breath or paroxysmal nocturnal dyspnea MUSCULOSKELETAL : Right shoulder pain Objective - Vital Signs Vital signs: Vital Signs Temp 98.6 F 07/06/18 12:05 Pulse 76 07/06/18 12:05 Resp 22 07/06/18 12:05 BP 117/69 07/06/18 12:05 Pulse Ox 94 L 07/06/18 12:05 Intake & Output 07/06/18 07/06/18 07/07/18 06:59 18:59 06:59 Intake Total 800 Balance 800 Weight 43.998 kg Intake: IV 200 Sodium Chloride 0.9% 1, 200 000 ml @ 75 mls/hr IV . [id number] ONE Rx#:[id number] Oral 600 Other: # Voids 1 2 - Exam GEN. APPEARANCE: Alert in mild distress HEAD EXAM: Temporal wasting EYE EXAM: No pallor, no icterus ENT EXAM: Mucous membrane is dry NECK EXAM: normal inspection. Absent: tenderness, meningismus, full ROM, lymphadenopathy RESPIRATORY EXAM: Decreased breath sounds bilaterally. Bilateral crackles in the lower lung hunter. CARDIOVASCULAR EXAM: regular rate, normal rhythm, normal heart sounds. Absent : systolic murmur, diastolic murmur, rubs, gallop, clicks GI/ABDOMINAL EXAM: Abdomen is distended. Positive for tenderness in the right upper quadrant. Bowel sounds normal. EXTREMITIES EXAM: No edema. NEUROLOGICAL EXAM: alert, oriented X3, no gross focal neurological deficits PSYCHIATRIC EXAM: normal affect, normal mood SKIN EXAM: warm, dry, intact, normal color. Absent: rash - Labs CBC & Chem 7: 07/06/18 07:15 07/06/18 07:15 Labs: Abnormal Lab Results - Last 24 Hours (Table) 07/06/18 07/06/18 07/06/18 Range/Units 07:15 07:15 07:15 WBC 13.2 H (3.8-10.6) k/uL RBC 3.49 L (3.80-5.40) m/uL Hgb 10.6 L (11.4-16.0) gm/dL Hct 32.8 L (34.0-46.0) % Neutrophils # 11.1 H (1.3-7.7) k/uL Lymphocytes # 0.9 L (1.0-4.8) k/uL Sodium 135 L (137-145) mmol/L Creatinine 0.46 L (0.52-1.04) mg/dL Glucose 114 H (74-99) mg/dL CA 15-3 Antigen 855.1 H (0.0-32.3) U/mL Microbiology - Last 24 Hours (Table) 07/04/18 10:49 Blood Culture - Preliminary Blood No Growth after 48 hours 07/04/18 13:07 Urine Culture - Final Urine,Voided Assessment and Plan Assessment: Assessment Intractable abdominal pain with nausea and vomiting Metastatic breast cancer Right pleural effusion Ascites Leukocytosis Thrombocytosis Cachexia Severe protein calorie malnutrition PLAN: Patient has been getting IV morphine and fentanyl patch has been added with some relif of her abdominal pain. C/w bowel regimen. We'll continue with IV hydration and antiemetics for her nausea and vomiting. PET scan done today - results to be reviewed by Onchology. Further recommendations to follow depending on the progress of the patient. Overall prognosis is very poor.
[2018-07-07] MEDS: MORPHINE CONC SOLN 10mg/0.5mL ORAL SYRG PO PRN ×4 (01:43→20:14)
[2018-07-07] MEDS: ONDANSETRON 4 MG/2 ML VIAL IVP PRN ×2 (08:42→20:07)
[2018-07-07] MEDS: ENOXAPARIN 30 MG/0.3 ML SYRINGE SQ SCH (08:42)
[2018-07-07] MEDS ORDERED: MAGNESIUM HYDROXIDE 2,400 MG/10 ML CUP PO PRN ×2 (11:26)
--- NOTE | 2018-07-07 11:36 | P.PN ---
Subjective Progress Note Date: 07/07/18 Principal diagnosis: malignancy related pain Patient seen today in follow-up. We reviewed her bone scan results. She states she is requiring breakthrough pain medication every 4 hours, she does get relief when taken just not duration. She states nausea after receiving morphine. She has use the antiemetic with good results, no vomiting, no BM, mild to moderate abdominal distention. No swelling or bleeding to report. Objective - Vital Signs Vital signs: Vital Signs Temp 98.1 F 07/07/18 07:27 Pulse 70 07/07/18 08:30 Resp 16 07/07/18 07:27 BP 94/51 07/07/18 07:27 Pulse Ox 90 L 07/07/18 08:20 Intake & Output 07/06/18 07/07/18 07/07/18 18:59 06:59 18:59 Intake Total 1400 Balance 1400 Weight 43.998 kg Intake: IV 200 ns@50 200 Oral 1200 Other: Voiding Method Toilet Toilet # Voids 2 - Constitutional General appearance: Present: cooperative, no acute distress, thin - EENT Eyes: Present: anicteric sclerae, EOMI ENT: Present: normal oropharynx - Respiratory Respiratory: bilateral: CTA - Cardiovascular Heart sounds: normal: S1, S2 Abnormal Heart Sounds: Absent: systolic murmur, diastolic murmur, rub, S3 Gallop , S4 Gallop, click, other - Peripheral edema leg Peripheral Edema: bilateral: None - Gastrointestinal General gastrointestinal: Present: distended, tenderness Localized gastrointestinal: tender: RUQ, LUQ, epigastric periumbilical - Neurologic Neurologic: Present: CNII-XII intact - Musculoskeletal Musculoskeletal: Present: generalized weakness, strength equal bilaterally - Psychiatric Psychiatric: Present: A&O x's 3, appropriate affect, intact judgment & insight - Labs CBC & Chem 7: 07/06/18 07:15 07/06/18 07:15 Labs: Abnormal Lab Results - Last 24 Hours (Table) 07/06/18 Range/Units 07:15 CA 15-3 Antigen 855.1 H (0.0-32.3) U/mL Microbiology - Last 24 Hours (Table) 07/04/18 10:49 Blood Culture - Preliminary Blood No Growth after 48 hours - Imaging and Cardiology Nuclear medicine bone scan report reviewed Assessment and Plan (1) Metastatic breast cancer Narrative/Plan: Pt was on a brief hiatus from chemo, unfortunately she has disease progression. Bone scan report was reviewed, evidence of increased intensity in known lesions as well as new ones. Discussed with patient that this represents disease progression. Her primary Oncologist Dr. Trinidad will see her next week to discuss treatment options. She verbalized understanding. All questions were answered to the best of my ability. Current Visit: Yes Status: Acute Priority: High Code(s): C50.919 - MALIGNANT NEOPLASM OF UNSP SITE OF UNSPECIFIED FEMALE BREAST SNOMED Code(s): 356301525 (2) Neoplasm related pain Narrative/Plan: Patient is requiring breakthrough pain medication every 4 hours. Fentanyl was increased to 37 g. No change in dose of breakthrough pain medication at this time as patient does state it makes her drowsy. We'll continue to titrate for comfort. Patient is complaining of abdominal distention and abdominal discomfort. Ultrasound will be ordered to evaluate ascites, possible paracentesis if interventional radiologist feels enough fluid for removal. Current Visit: Yes Status: Acute Priority: High Code(s): G89.3 - NEOPLASM RELATED PAIN (ACUTE) (CHRONIC) SNOMED Code(s): 209982493 (3) Constipation Narrative/Plan: Likely multifactorial including pain medications, liver dysfunction and and ascites. Another dose of milk of magnesia has been ordered with the addition of some warm prune juice, continue Senokot twice a day. His nose being monitored. Current Visit: Yes Status: Chronic Priority: Medium Code(s): K59.00 - CONSTIPATION, UNSPECIFIED SNOMED Code(s): 82863172 (4) Nausea Narrative/Plan: Most notable after administration of morphine. Did discuss with patient that this should ayush over time, encouraged her to utilize antiemetics as needed as she states relief when using. Current Visit: Yes Status: Acute Priority: High Code(s): R11.0 - NAUSEA SNOMED Code(s): 817956672
--- NOTE | 2018-07-07 14:21 | US ---
EXAMINATION TYPE: US abdomen complete DATE OF EXAM: 07/07/2018 COMPARISON: CT 2018 CLINICAL HISTORY: abd distension, metastatic breast cancer. Abdomen pain and N/V x 1 week, metastatic breast CA, exam done portable. EXAM MEASUREMENTS: Liver Length: 22.5 cm Gallbladder Wall: 0.2 cm CBD: 0.6 cm Spleen: 9.2 cm Right Kidney: 11.4 x 3.7 x 5.1 cm Left Kidney: 10.1 x 5.5 x 4.0 cm Pancreas: obscured by overlying midline bowel gas Liver: enlarged, heterogeneous, metastases throughout Gallbladder: cholelithiasis, wall measures wnl Evidence for sonographic Hanan's sign: yes CBD: borderline dilated at 0.6cm Spleen: wnl Right Kidney: visualized portions wnl, inferior pole lesion seen on CT not seen on today's exam due to inferior pole limited by overlying bowel gas Left Kidney: wnl Upper IVC: wnl Abd Aorta: atherosclerotic changes, distal portion obscured by overlying midline bowel gas Bilateral pleural effusions IMPRESSION: 1. Bilateral pleural effusions. 2. Liver is enlarged with multiple areas of heterogeneity compatible with the recent CT scan of diogo clayton. 3. Cholelithiasis. Common bile duct at the upper limits of normal measuring 6 mm. 4. Reported lesion by CT scan involving the lower pole the right kidney is not seen by ultrasound. On the CT scan the lesion appears diminutive in size which likely accounts for the inability to detect by ultrasound. It does not appear to be compatible with a simple cyst by CT scan but likely was prese nt on the exam of 12/01/2017. Given its diminutive size either further evaluation with MRI or short-te rm follow-up CT scan could be obtained.
[2018-07-07] MEDS ORDERED: ONDANSETRON 4 MG TAB PO STA (15:01)
--- NOTE | 2018-07-07 23:08 | P.PN ---
Subjective Progress Note Date: 07/07/18 Principal diagnosis: Intractable abdominal pain is a 63-year-old female with a past medical history of metastatic breast cancer who follows with Dr. Trinidad in an OP setting coming to the hospital with a chief complaint of increased abdominal pain for the past couple of weeks. Patient has metastatic breast cancer with metastases to her lung and shoulder. Patient underwent multiple sessions of chemotherapy and currently on a chemo holiday. Patient started to have right upper abdominal pain that has progressively worsened associated with some nausea along with decreased appetite for the past couple of days. She states she tried to take pain medications at home that did not help her and so coming to the ER for intractable abdominal pain. Patient had CT for PE that was negative for pulmonary embolism and CT of the abdomen and pelvis showing extensive metastatic disease in the liver and increased right-sided pleural effusion and also 1 cm lesion in the lower pole of the right kidney of questionable etiology. On 07/07/18 - Currently the patient has been getting IV morphine and she states her pain is under better control when she gets her pain meds at the scheduled time. Pt was able to take a bath today. On Review of systems CONSTITUTIONAL : Loss of appetite, generalized weakness and fatigue with weight loss NEURO: Denies any weakness or numbness RESPIRATORY: Progressive worsening of shortness of breath at baseline : No dysuria or hematuria CARDIAC: No chest pain , shortness of breath or paroxysmal nocturnal dyspnea MUSCULOSKELETAL : Right shoulder pain still present Objective - Vital Signs Vital signs: Vital Signs Temp 98.1 F 07/07/18 12:44 Pulse 78 07/07/18 12:44 Resp 16 07/07/18 12:44 BP 109/58 07/07/18 12:44 Pulse Ox 96 07/07/18 12:44 Intake & Output 07/06/18 07/07/18 07/07/18 18:59 06:59 18:59 Intake Total 1400 Balance 1400 Weight 43.998 kg Intake: IV 200 ns@50 200 Oral 1200 Other: Voiding Method Toilet Toilet # Voids 2 3 - Exam GEN. APPEARANCE: Alert in mild distress HEAD EXAM: Temporal wasting EYE EXAM: No pallor, no icterus ENT EXAM: Mucous membrane is dry NECK EXAM: normal inspection. Absent: tenderness, meningismus, full ROM, lymphadenopathy RESPIRATORY EXAM: Decreased breath sounds bilaterally. Bilateral crackles in the lower lung hunter. CARDIOVASCULAR EXAM: regular rate, normal rhythm, normal heart sounds. Absent : systolic murmur, diastolic murmur, rubs, gallop, clicks GI/ABDOMINAL EXAM: Abdomen is distended. Positive for tenderness in the right upper quadrant. Bowel sounds normal. EXTREMITIES EXAM: No edema. NEUROLOGICAL EXAM: alert, oriented X3, no gross focal neurological deficits PSYCHIATRIC EXAM: normal affect, normal mood SKIN EXAM: warm, dry, intact, normal color. Absent: rash - Labs CBC & Chem 7: 07/06/18 07:15 07/06/18 07:15 Labs: Abnormal Lab Results - Last 24 Hours (Table) 07/06/18 Range/Units 07:15 CA 15-3 Antigen 855.1 H (0.0-32.3) U/mL Microbiology - Last 24 Hours (Table) 07/04/18 10:49 Blood Culture - Preliminary Blood No Growth after 72 hours Assessment and Plan Plan: Assessment Intractable abdominal pain with nausea and vomiting Metastatic breast cancer Right pleural effusion Ascites Leukocytosis Thrombocytosis Cachexia Severe protein calorie malnutrition PLAN: Patient has been getting IV morphine at scheduled times and fentanyl patch has been increased to 37.5 mcg today. C/w bowel regimen. We'll continue with IV hydration and antiemetics for her nausea and vomiting. PET scan done today - results to be reviewed and discussed by Onchology - progression of the disease. Further recommendations based on the clinical course. Overall prognosis is very poor.
[2018-07-08] MEDS: ONDANSETRON 4 MG/2 ML VIAL IVP PRN ×4 (03:45→17:38)
[2018-07-08] MEDS: MORPHINE CONC SOLN 10mg/0.5mL ORAL SYRG PO PRN ×2 (03:45→08:22)
[2018-07-08] MEDS: ENOXAPARIN 30 MG/0.3 ML SYRINGE SQ SCH (08:25)
[2018-07-08] MEDS: SENNOSIDES 8.6 MG TAB PO SCH ×2 (10:50→21:02)
[2018-07-08] MEDS: MAGNESIUM HYDROXIDE 2,400 MG/10 ML CUP PO SCH ×2 (10:51→21:02)
--- NOTE | 2018-07-08 14:24 | P.PN ---
Subjective Progress Note Date: 07/08/18 the patient feels that her overall pain control is improved. However she still notes increase in pain when she is active. She denied any fever/chills/nausea/ vomiting. Appetite is somewhat diminished. Abdomen is still somewhat distended but without any significant change. She has not yet had a bowel movement Objective - Vital Signs Vital signs: Vital Signs Temp 98.2 F 07/08/18 11:48 Pulse 74 07/08/18 11:48 Resp 16 07/08/18 11:48 BP 104/64 07/08/18 11:48 Pulse Ox 96 07/08/18 11:48 Intake & Output 07/07/18 07/08/18 07/08/18 18:59 06:59 18:59 Intake Total 2019 Balance 2019 Intake: IV 600 ns@50 600 Oral 1420 Other: Voiding Method Toilet Toilet Toilet # Voids 3 3 2 # Bowel Movements 0 - Constitutional General appearance: Present: no acute distress - EENT Eyes: Present: EOMI ENT: Present: hearing grossly normal, normal oropharynx - Respiratory Respiratory: bilateral: CTA - Cardiovascular Rhythm: regular Heart sounds: normal: S1, S2 - Gastrointestinal General gastrointestinal: Present: distended, hepatomegaly, normal bowel sounds , soft Localized gastrointestinal: tender: RUQ - Integumentary Integumentary: Present: normal - Neurologic Neurologic: Present: CNII-XII intact - Musculoskeletal Musculoskeletal: Present: generalized weakness, strength equal bilaterally - Psychiatric Psychiatric: Present: A&O x's 3, appropriate affect - Labs CBC & Chem 7: 07/06/18 07:15 07/06/18 07:15 Labs: Microbiology - Last 24 Hours (Table) 07/04/18 10:49 Blood Culture - Preliminary Blood No Growth after 96 hours - Imaging and Cardiology US - abdomen: report reviewed Assessment and Plan (1) Neoplasm related pain Narrative/Plan: pain control is better overall.however she does have increasing symptoms with activity. Fentanyl dose was increased yesterday to 37 g patch every 72 hours. he is continuing on morphine when necessary. Especially at rest, she is able to go definitely longer without breakthrough medication. Plan will be to discharge her on fentanyl, and Roxanol Current Visit: Yes Status: Acute Priority: High Code(s): G89.3 - NEOPLASM RELATED PAIN (ACUTE) (CHRONIC) SNOMED Code(s): 111207187 (2) Metastatic breast cancer Narrative/Plan: he patient has had definite, rapid progression. She will follow-up with Dr Trinidad in the office post discharge Current Visit: Yes Status: Acute Priority: High Code(s): C50.919 - MALIGNANT NEOPLASM OF UNSP SITE OF UNSPECIFIED FEMALE BREAST SNOMED Code(s): 550415377 (3) Pleural effusion Current Visit: Yes Status: Acute Code(s): J90 - PLEURAL EFFUSION, NOT ELSEWHERE CLASSIFIED SNOMED Code(s): 30902580 Plan: the patient has been placed on the central part [id number] to improve frequency of follow-up visits. Abdomen is still distended but soft. Ultrasound of the abdomen did not mention any significant ascites.
[2018-07-08] MEDS: IBUPROFEN 400 MG TAB PO PRN (23:51)
[2018-07-09] MEDS: ONDANSETRON 4 MG/2 ML VIAL IVP PRN ×4 (07:08→19:44)
[2018-07-09] MEDS: ENOXAPARIN 30 MG/0.3 ML SYRINGE SQ SCH (08:30)
[2018-07-09] MEDS: MAGNESIUM HYDROXIDE 2,400 MG/10 ML CUP PO SCH ×2 (08:31→21:37)
[2018-07-09] MEDS: MORPHINE CONC SOLN 10mg/0.5mL ORAL SYRG PO PRN ×3 (08:32→19:43)
[2018-07-09] MEDS: SENNOSIDES 8.6 MG TAB PO SCH ×2 (10:17→21:37)
[2018-07-09 10:47] LABS: Appearance,Urine Clear (Clear); Bilirubin,Urine Negative (Negative); Blood,Urine Negative (Negative); Color,Urine Yellow; Glucose,Urine (UA) 3+ (Negative); Ketones,Urine Negative (Negative); Leukocyte Esterase,Urine Negative (Negative); Nitrite,Urine Negative (Negative); PH, Urine 5.5 (5.0-8.0); Protein,Urine Negative (Negative); Urobilinogen,Urine <2.0 mg/dL (<2.0)
--- NOTE | 2018-07-09 10:48 | XR ---
EXAMINATION TYPE: XR chest 2V DATE OF EXAM: 07/09/2018 COMPARISON: 07/04/2018 TECHNIQUE: PA and lateral views submitted. HISTORY: Fever shortness of breath FINDINGS: Bilateral consolidation and pleural effusion greater on the right. Biapical pleural thickening. Hyper inflation is COPD. Hypertrophic and degenerative change of the spine. IMPRESSION: 1. Bilateral infiltrate and pleural effusion greater on the right. 2. COPD.
--- NOTE | 2018-07-09 18:12 | P.PN ---
Subjective Progress Note Date: 07/09/18 Principal diagnosis: malignancy related pain Pt seen in f/u, pain management continues to be adjusted, pt had fever, pancultures pending. Denies SENIOR, dysphagia, intermittent nausea, especially after roxanol, no vomiting, cough, pain is in her epigastic area, across the upper abd, constant, aching, she did have a BM today and thinks that helped a little bit, no bleeding, independently ambulatory. Objective - Vital Signs Vital signs: Vital Signs Temp 98.4 F 07/09/18 11:39 Pulse 72 07/09/18 11:39 Resp 16 07/09/18 11:39 BP 98/51 07/09/18 11:39 Pulse Ox 97 07/09/18 11:39 Intake & Output 07/08/18 07/09/18 07/09/18 18:59 06:59 18:59 Intake Total 1160 Balance 1160 Weight 43.998 kg Intake: IV 500 ns@50 500 Oral 660 Other: Voiding Method Toilet Toilet Toilet # Voids 2 2 2 # Bowel Movements 0 1 - Constitutional General appearance: Present: cooperative, no acute distress, thin - EENT Eyes: Present: anicteric sclerae, EOMI ENT: Present: hearing grossly normal - Respiratory Respiratory: bilateral: CTA - Cardiovascular Rhythm: regular Heart sounds: normal: S1, S2 Abnormal Heart Sounds: Present: systolic murmur - Peripheral edema leg Peripheral Edema: bilateral: None - Gastrointestinal General gastrointestinal: Present: soft Localized gastrointestinal: tender: RUQ, LUQ, epigastric periumbilical - Neurologic Neurologic: Present: CNII-XII intact - Musculoskeletal Musculoskeletal: Present: strength equal bilaterally - Psychiatric Psychiatric: Present: A&O x's 3, appropriate affect, intact judgment & insight - Labs CBC & Chem 7: 07/06/18 07:15 07/06/18 07:15 Labs: Abnormal Lab Results - Last 24 Hours (Table) 07/08/18 Range/Units 21:02 Urine Glucose (UA) 3+ H (Negative) Microbiology - Last 24 Hours (Table) 07/04/18 10:49 Blood Culture - Preliminary Blood No Growth after 120 hours 07/08/18 21:02 Urine Culture - Preliminary Urine,Clean Catch - Imaging and Cardiology Chest x-ray: report reviewed Assessment and Plan (1) Metastatic breast cancer Narrative/Plan: Pt has appt with Dr. Trinidad next week to discuss next treatment options Current Visit: Yes Status: Acute Priority: High Code(s): C50.919 - MALIGNANT NEOPLASM OF UNSP SITE OF UNSPECIFIED FEMALE BREAST SNOMED Code(s): 968919554 (2) Neoplasm related pain Narrative/Plan: Pain meds are currently being titrated to comfort Pt is on bowel regimen Current Visit: Yes Status: Acute Priority: High Code(s): G89.3 - NEOPLASM RELATED PAIN (ACUTE) (CHRONIC) SNOMED Code(s): 746015187 (3) Constipation Narrative/Plan: Pt has had chronically and now additionally due to narcotics, bowel regimen Current Visit: Yes Status: Chronic Priority: Medium Code(s): K59.00 - CONSTIPATION, UNSPECIFIED SNOMED Code(s): 61381282 (4) Nausea Narrative/Plan: After narcotics, hope this eases with exposure, Zofran seems help, will use prophylactically, rx sent Current Visit: Yes Status: Acute Priority: High Code(s): R11.0 - NAUSEA SNOMED Code(s): 211337969 Plan: Cont to monitor pain interventions Nausea and constipation managed
[2018-07-09] MEDS: IBUPROFEN 400 MG TAB PO PRN (21:37)
[2018-07-10] MEDS: MORPHINE CONC SOLN 10mg/0.5mL ORAL SYRG PO PRN ×5 (00:11→18:10)
[2018-07-10] MEDS: ONDANSETRON 4 MG/2 ML VIAL IVP PRN ×5 (00:12→18:10)
--- NOTE | 2018-07-10 02:31 | P.PN ---
Subjective Progress Note Date: 07/08/18 Principal diagnosis: Intractable abdominal pain is a 63-year-old female with a past medical history of metastatic breast cancer who follows with Dr. Trinidad in an OP setting coming to the hospital with a chief complaint of increased abdominal pain for the past couple of weeks. Patient has metastatic breast cancer with metastases to her lung and shoulder. Patient underwent multiple sessions of chemotherapy and currently on a chemo holiday. Patient started to have right upper abdominal pain that has progressively worsened associated with some nausea along with decreased appetite for the past couple of days. She states she tried to take pain medications at home that did not help her and so coming to the ER for intractable abdominal pain. Patient had CT for PE that was negative for pulmonary embolism and CT of the abdomen and pelvis showing extensive metastatic disease in the liver and increased right-sided pleural effusion and also 1 cm lesion in the lower pole of the right kidney of questionable etiology. On 07/07/18 - Currently the patient has been getting IV morphine and she states her pain is under better control when she gets her pain meds at the scheduled time. Pt was able to take a bath today. 07/08/2018 Patient says that her abdominal pain is better. Denied any complaints of chest pain or shortness of breath. No bowel movement yet. Ultrasound of the abdomen showed no significant ascites to be drained. Patient does have poor appetite. No other acute overnight issues. On Review of systems CONSTITUTIONAL : Loss of appetite, generalized weakness and fatigue with weight loss NEURO: Denies any weakness or numbness RESPIRATORY: Progressive worsening of shortness of breath at baseline : No dysuria or hematuria CARDIAC: No chest pain , shortness of breath or paroxysmal nocturnal dyspnea MUSCULOSKELETAL : Right shoulder pain still present Objective - Vital Signs Vital signs: Vital Signs Temp 100.9 F H 07/08/18 20:40 Pulse 86 07/08/18 20:40 Resp 18 07/08/18 20:40 BP 111/57 07/08/18 20:40 Pulse Ox 94 L 07/08/18 20:40 Intake & Output 07/08/18 07/08/18 07/09/18 06:59 18:59 06:59 Intake Total 2019 Balance 2019 Intake: IV 600 ns@50 600 Oral 1420 Other: Voiding Method Toilet Toilet # Voids 3 2 # Bowel Movements 0 - Exam GEN. APPEARANCE: Alert in mild distress HEAD EXAM: Temporal wasting EYE EXAM: No pallor, no icterus ENT EXAM: Mucous membrane is dry NECK EXAM: normal inspection. Absent: tenderness, meningismus, full ROM, lymphadenopathy RESPIRATORY EXAM: Decreased breath sounds bilaterally. Bilateral crackles in the lower lung hunter. CARDIOVASCULAR EXAM: regular rate, normal rhythm, normal heart sounds. Absent : systolic murmur, diastolic murmur, rubs, gallop, clicks GI/ABDOMINAL EXAM: Abdomen is distended. Positive for tenderness in the right upper quadrant. Bowel sounds normal. EXTREMITIES EXAM: No edema. NEUROLOGICAL EXAM: alert, oriented X3, no gross focal neurological deficits PSYCHIATRIC EXAM: normal affect, normal mood SKIN EXAM: warm, dry, intact, normal color. Absent: rash - Labs CBC & Chem 7: 07/06/18 07:15 07/06/18 07:15 Labs: Microbiology - Last 24 Hours (Table) 07/04/18 10:49 Blood Culture - Preliminary Blood No Growth after 96 hours Assessment and Plan Plan: Assessment Intractable abdominal pain with nausea and vomiting. Improving symptomatically Constipation Metastatic breast cancer Right pleural effusion Ascites Leukocytosis Thrombocytosis Cachexia Severe protein calorie malnutrition PLAN: Patient has been getting IV morphine at scheduled times and fentanyl patch has been increased to 37.5 mcg today. C/w bowel regimen. We'll continue with IV hydration and antiemetics for her nausea and vomiting. PET scan done today - results to be reviewed and discussed by Onchology - progression of the disease. Further recommendations based on the clinical course. Overall prognosis is very poor.
--- NOTE | 2018-07-10 02:36 | P.PN ---
Subjective Progress Note Date: 07/09/18 Principal diagnosis: Intractable abdominal pain is a 63-year-old female with a past medical history of metastatic breast cancer who follows with Dr. Trinidad in an OP setting coming to the hospital with a chief complaint of increased abdominal pain for the past couple of weeks. Patient has metastatic breast cancer with metastases to her lung and shoulder. Patient underwent multiple sessions of chemotherapy and currently on a chemo holiday. Patient started to have right upper abdominal pain that has progressively worsened associated with some nausea along with decreased appetite for the past couple of days. She states she tried to take pain medications at home that did not help her and so coming to the ER for intractable abdominal pain. Patient had CT for PE that was negative for pulmonary embolism and CT of the abdomen and pelvis showing extensive metastatic disease in the liver and increased right-sided pleural effusion and also 1 cm lesion in the lower pole of the right kidney of questionable etiology. On 07/07/18 - Currently the patient has been getting IV morphine and she states her pain is under better control when she gets her pain meds at the scheduled time. Pt was able to take a bath today. 07/08/2018 Patient says that her abdominal pain is better. Denied any complaints of chest pain or shortness of breath. No bowel movement yet. Ultrasound of the abdomen showed no significant ascites to be drained. Patient does have poor appetite. No other acute overnight issues. 07/09/2018 Abdominal pain is better today. Patient did have bowel movement last night. Still having nausea otherwise. Continued on current pain management and oncology is following. No other acute overnight issues. Anticipate discharge in 1-2 days with more clinical improvement. On Review of systems CONSTITUTIONAL : Loss of appetite, generalized weakness and fatigue with weight loss NEURO: Denies any weakness or numbness RESPIRATORY: Progressive worsening of shortness of breath at baseline : No dysuria or hematuria CARDIAC: No chest pain , shortness of breath or paroxysmal nocturnal dyspnea MUSCULOSKELETAL : Right shoulder pain still present Objective - Vital Signs Vital signs: Vital Signs Temp 100.7 F H 07/09/18 21:00 Pulse 115 H 07/09/18 21:00 Resp 16 07/09/18 21:00 BP 120/58 07/09/18 21:00 Pulse Ox 93 L 07/09/18 21:00 Intake & Output 07/09/18 07/09/18 07/10/18 06:59 18:59 06:59 Intake Total 1160 Balance 1160 Weight 43.998 kg Intake: IV 500 ns@50 500 Oral 660 Other: Voiding Method Toilet Toilet # Voids 2 2 # Bowel Movements 1 - Exam GEN. APPEARANCE: Alert in mild distress HEAD EXAM: Temporal wasting EYE EXAM: No pallor, no icterus ENT EXAM: Mucous membrane is dry NECK EXAM: normal inspection. Absent: tenderness, meningismus, full ROM, lymphadenopathy RESPIRATORY EXAM: Decreased breath sounds bilaterally. Bilateral crackles in the lower lung hunter. CARDIOVASCULAR EXAM: regular rate, normal rhythm, normal heart sounds. Absent : systolic murmur, diastolic murmur, rubs, gallop, clicks GI/ABDOMINAL EXAM: Abdomen is distended. Positive for tenderness in the right upper quadrant. Bowel sounds normal. EXTREMITIES EXAM: No edema. NEUROLOGICAL EXAM: alert, oriented X3, no gross focal neurological deficits PSYCHIATRIC EXAM: normal affect, normal mood SKIN EXAM: warm, dry, intact, normal color. Absent: rash - Labs CBC & Chem 7: 07/06/18 07:15 07/06/18 07:15 Labs: Abnormal Lab Results - Last 24 Hours (Table) 07/08/18 Range/Units 21:02 Urine Glucose (UA) 3+ H (Negative) Microbiology - Last 24 Hours (Table) 07/04/18 10:49 Blood Culture - Preliminary Blood No Growth after 120 hours 07/08/18 21:02 Urine Culture - Preliminary Urine,Clean Catch Assessment and Plan Plan: Assessment Intractable abdominal pain with nausea and vomiting. Improving symptomatically Constipation Metastatic breast cancer Right pleural effusion Ascites Leukocytosis Thrombocytosis Cachexia Severe protein calorie malnutrition PLAN: Patient has been getting IV morphine at scheduled times and fentanyl patch has been increased to 37.5 mcg today. C/w bowel regimen. We'll continue with IV hydration and antiemetics for her nausea and vomiting. PET scan done today - results to be reviewed and discussed by Onchology - progression of the disease. Further recommendations based on the clinical course. Overall prognosis is very poor.
[2018-07-10] MEDS: ENOXAPARIN 30 MG/0.3 ML SYRINGE SQ SCH (09:36)
[2018-07-10] MEDS: MAGNESIUM HYDROXIDE 2,400 MG/10 ML CUP PO SCH ×2 (09:36→20:48)
[2018-07-10] MEDS: SENNOSIDES 8.6 MG TAB PO SCH ×2 (09:36→20:48)
--- NOTE | 2018-07-10 13:14 | P.PN ---
Subjective Progress Note Date: 07/10/18 Principal diagnosis: Intractable abdominal pain Objective - Vital Signs Vital signs: Vital Signs Temp 96.1 F L 07/10/18 05:00 Pulse 68 07/10/18 05:00 Resp 16 07/10/18 05:00 BP 98/53 07/10/18 05:00 Pulse Ox 98 07/10/18 05:00 Intake & Output 07/09/18 07/10/18 07/10/18 18:59 06:59 18:59 Intake Total 550 Balance 550 Weight 43.998 kg Intake: Oral 550 Other: Voiding Method Toilet Toilet Toilet # Voids 2 2 1 # Bowel Movements 1 - Exam GEN. APPEARANCE: Alert in mild distress HEAD EXAM: Temporal wasting EYE EXAM: No pallor, no icterus ENT EXAM: Mucous membrane is dry NECK EXAM: normal inspection. Absent: tenderness, meningismus, full ROM, lymphadenopathy RESPIRATORY EXAM: Decreased breath sounds bilaterally. Bilateral crackles in the lower lung hunter. CARDIOVASCULAR EXAM: regular rate, normal rhythm, normal heart sounds. Absent : systolic murmur, diastolic murmur, rubs, gallop, clicks GI/ABDOMINAL EXAM: Abdomen is distended. Positive for tenderness in the right upper quadrant. Bowel sounds normal. EXTREMITIES EXAM: No edema. NEUROLOGICAL EXAM: alert, oriented X3, no gross focal neurological deficits PSYCHIATRIC EXAM: normal affect, normal mood SKIN EXAM: warm, dry, intact, normal color. Absent: rash - Labs CBC & Chem 7: 07/06/18 07:15 07/06/18 07:15 Labs: Abnormal Lab Results - Last 24 Hours (Table) 07/08/18 Range/Units 21:02 Urine Glucose (UA) 3+ H (Negative) Microbiology - Last 24 Hours (Table) 07/08/18 21:02 Urine Culture - Final Urine,Clean Catch 07/08/18 21:45 Blood Culture - Preliminary Blood No Growth after 24 hours 07/08/18 21:27 Blood Culture - Preliminary Blood No Growth after 24 hours 07/04/18 10:49 Blood Culture - Preliminary Blood No Growth after 120 hours Assessment and Plan Assessment: Intractable abdominal pain with nausea and vomiting. Improving symptomatically Constipation Metastatic breast cancer Right pleural effusion Ascites Leukocytosis Thrombocytosis Cachexia Severe protein calorie malnutrition PLAN: Patient has been getting IV morphine at scheduled times and fentanyl patch has been increased to 37.5 mcg today. C/w bowel regimen. We'll continue with IV hydration and antiemetics for her nausea and vomiting. PET scan done today - results to be reviewed and discussed by Onchology - progression of the disease. Further recommendations based on the clinical course. Overall prognosis is very poor. Palliative care was consulted for pain control Time with Patient: Greater than 30
--- NOTE | 2018-07-10 18:30 | P.PN ---
Subjective Progress Note Date: 07/10/18 The patient states that her pain is controlled, as long as she takes breakthrough pain medications on a regular basis. She is also been complaining of nausea and has been requiring Zofran regularly. She states that she feels short of breath after activity. No fever/chills/new adenopathy Objective - Vital Signs Vital signs: Vital Signs Temp 97.6 F 07/10/18 12:10 Pulse 68 07/10/18 12:10 Resp 14 07/10/18 12:10 BP 119/57 07/10/18 12:10 Pulse Ox 97 07/10/18 12:10 Intake & Output 07/09/18 07/10/18 07/10/18 18:59 06:59 18:59 Intake Total 550 Balance 550 Weight 43.998 kg Intake: Oral 550 Other: Voiding Method Toilet Toilet Toilet # Voids 2 2 4 # Bowel Movements 1 - Constitutional General appearance: Present: no acute distress - EENT Eyes: Present: EOMI ENT: Present: hearing grossly normal, normal oropharynx - Respiratory Respiratory: right: diminished (One third right lower lung field) - Cardiovascular Rhythm: regular Heart sounds: normal: S1, S2 - Gastrointestinal General gastrointestinal: Present: normal bowel sounds, soft - Integumentary Integumentary: Present: normal - Neurologic Neurologic: Present: CNII-XII intact - Musculoskeletal Musculoskeletal: Present: generalized weakness, right sided weakness - Psychiatric Psychiatric: Present: A&O x's 3, appropriate affect - Labs CBC & Chem 7: 07/06/18 07:15 07/06/18 07:15 Labs: Microbiology - Last 24 Hours (Table) 07/04/18 10:49 Blood Culture - Final Blood No Growth after 144 hours 07/08/18 21:02 Urine Culture - Final Urine,Clean Catch 07/08/18 21:45 Blood Culture - Preliminary Blood No Growth after 24 hours 07/08/18 21:27 Blood Culture - Preliminary Blood No Growth after 24 hours Assessment and Plan (1) Neoplasm related pain Narrative/Plan: The patient's pain control was still somewhat suboptimal yesterday as she was requiring breakthrough pain medications on a regular basis. This was also causing her some nausea. Therefore fentanyl patch was increased to 50 g today. She was given a discharge prescription for the same. She'll also be discharged home on Roxanol 5 mg every 4 hours when necessary. Prescription for the same was also generated. She was counseled about bowel protocol to prevent constipation. MAPS run through the office Opioid "start talking" form was reviewed with her. She will sign the requisite forms for each of her new opioid scripts. She had no specific questions Current Visit: Yes Status: Acute Priority: High Code(s): G89.3 - NEOPLASM RELATED PAIN (ACUTE) (CHRONIC) SNOMED Code(s): 117606140 (2) Metastatic breast cancer Narrative/Plan: I discussed the patient's presentation and implications with her again today. She was advised that her presentation represents rapid progression of her known metastatic breast malignancy. She is well aware of that. She is also aware that her cancer is not curable and the objective of treatment is strong addition of life and palliation of symptoms. She is currently on a treatment break, and will be following up with Dr. Trinidad next week to discuss further options. We also discussed that chances of response, as well as duration of response is expected to decrease as she progresses through various lines of therapy. She expressed understanding of the same. He also stated that her children seem to be having somewhat of a hard time dealing with the diagnosis and she has been discussing the implications of the CAT scan with them. She was advised to try to take them with her to her visit with Dr. Trinidad. She stated that she would do so. Current Visit: Yes Status: Acute Priority: High Code(s): C50.919 - MALIGNANT NEOPLASM OF UNSP SITE OF UNSPECIFIED FEMALE BREAST SNOMED Code(s): 046232758 (3) Pleural effusion Narrative/Plan: If the patient has progressive shortness of breath, then we would need to evaluate her for possible thoracentesis. Current Visit: Yes Status: Acute Code(s): J90 - PLEURAL EFFUSION, NOT ELSEWHERE CLASSIFIED SNOMED Code(s): 65930892
[2018-07-10 21:43] VITALS: RESP 16
[2018-07-11] MEDS: MORPHINE CONC SOLN 10mg/0.5mL ORAL SYRG PO PRN (05:12)
[2018-07-11] MEDS: ONDANSETRON 4 MG/2 ML VIAL IVP PRN ×2 (05:13→11:16)
[2018-07-11 07:28] LABS: Basophils % (A) 0 %; Eosinophils # (A) 0.2 k/uL (0-0.7); Eosinophils % (A) 2 %; HGB 9.6 gm/dL (11.4-16.0); Hypochromasia Slight; Lymphocytes # (A) 0.6 k/uL (1.0-4.8); Lymphocytes % (A) 5 %; MCH 30.4 pg (25.0-35.0); MCHC 32.1 g/dL (31.0-37.0); MCV 94.7 fL (80.0-100.0); Mean Platelet Volume 7.3; Monocytes # (A) 0.7 k/uL (0-1.0); Monocytes % (A) 6 %; Neutrophils # (A) 10.4 k/uL (1.3-7.7); Neutrophils % (A) 87 %; Platelet Count 495 k/uL (150-450); RBC 3.17 m/uL (3.80-5.40); RDW 14.6 % (11.5-15.5)
[2018-07-11 07:53] LABS: Anion Gap 10 mmol/L; Blood Urea Nitrogen 13 mg/dL (7-17); Calcium 9.4 mg/dL (8.4-10.2); Carbon Dioxide 28 mmol/L (22-30); Chloride 94 mmol/L (98-107); Glucose 120 mg/dL (74-99); Potassium 4.5 mmol/L (3.5-5.1); Sodium 132 mmol/L (137-145)
[2018-07-11] MEDS: SENNOSIDES 8.6 MG TAB PO SCH (09:07)
[2018-07-11] MEDS: ENOXAPARIN 30 MG/0.3 ML SYRINGE SQ SCH (09:07)
[2018-07-11] MEDS: MAGNESIUM HYDROXIDE 2,400 MG/10 ML CUP PO SCH (09:07)
[2018-07-11 12:43] VITALS: BP 103/54; PULSE 68; TEMP 98.2
--- NOTE | 2018-07-11 14:16 | P.PN ---
Subjective Progress Note Date: 07/11/18 Principal diagnosis: Intractable abdominal pain 63-year-old female with a past medical history of metastatic breast cancer who follows with Dr. Trinidad in an OP setting coming to the hospital with a chief complaint of increased abdominal pain for the past couple of weeks. Patient has metastatic breast cancer with metastases to her lung and shoulder. Patient underwent multiple sessions of chemotherapy and currently on a chemo holiday. Patient started to have right upper abdominal pain that has progressively worsened associated with some nausea along with decreased appetite for the past couple of days. She states she tried to take pain medications at home that did not help her and so coming to the ER for intractable abdominal pain. Patient had CT for PE that was negative for pulmonary embolism and CT of the abdomen and pelvis showing extensive metastatic disease in the liver and increased right-sided pleural effusion and also 1 cm lesion in the lower pole of the right kidney of questionable etiology. 07/11/2018 Patient is seen for follow-up on intractable abdominal pain; nausea and vomiting is somewhat improved; patient relates he had detailed discussion with oncology and will have her children meet with primary oncologist for further plan of care Await palliative care consult for better pain control Objective - Vital Signs Vital signs: Vital Signs Temp 98.2 F 07/11/18 12:30 Pulse 68 07/11/18 12:30 Resp 16 07/11/18 12:30 BP 103/54 07/11/18 12:30 Pulse Ox 97 07/11/18 12:30 Intake & Output 07/10/18 07/11/18 07/11/18 18:59 06:59 18:59 Intake Total 360 Balance 360 Intake: IV 240 ns@50 240 Oral 120 Other: Voiding Method Toilet Toilet Toilet # Voids 4 1 1 - Exam GEN. APPEARANCE: Alert in mild distress HEAD EXAM: Temporal wasting EYE EXAM: No pallor, no icterus ENT EXAM: Mucous membrane is dry NECK EXAM: normal inspection. Absent: tenderness, meningismus, full ROM, lymphadenopathy RESPIRATORY EXAM: Decreased breath sounds bilaterally. Bilateral crackles in the lower lung hunter. CARDIOVASCULAR EXAM: regular rate, normal rhythm, normal heart sounds. Absent : systolic murmur, diastolic murmur, rubs, gallop, clicks GI/ABDOMINAL EXAM: Abdomen is distended. Positive for tenderness in the right upper quadrant. Bowel sounds normal. EXTREMITIES EXAM: No edema. NEUROLOGICAL EXAM: alert, oriented X3, no gross focal neurological deficits PSYCHIATRIC EXAM: normal affect, normal mood SKIN EXAM: warm, dry, intact, normal color. Absent: rash - Labs CBC & Chem 7: 07/11/18 07:00 07/11/18 07:00 Labs: Abnormal Lab Results - Last 24 Hours (Table) 07/11/18 07/11/18 Range/Units 07:00 07:00 WBC 12.0 H (3.8-10.6) k/uL RBC 3.17 L (3.80-5.40) m/uL Hgb 9.6 L (11.4-16.0) gm/dL Hct 30.0 L (34.0-46.0) % Plt Count 495 H (150-450) k/uL Neutrophils # 10.4 H (1.3-7.7) k/uL Lymphocytes # 0.6 L (1.0-4.8) k/uL Sodium 132 L (137-145) mmol/L Chloride 94 L (98-107) mmol/L Creatinine 0.51 L (0.52-1.04) mg/dL Glucose 120 H (74-99) mg/dL Microbiology - Last 24 Hours (Table) 07/08/18 21:27 Blood Culture - Preliminary Blood No Growth after 48 hours 07/08/18 21:45 Blood Culture - Preliminary Blood No Growth after 48 hours 07/04/18 10:49 Blood Culture - Final Blood No Growth after 144 hours Assessment and Plan Assessment: Intractable abdominal pain with nausea and vomiting. Improving symptomatically Constipation Metastatic breast cancer Right pleural effusion Ascites Leukocytosis Thrombocytosis Cachexia Severe protein calorie malnutrition PLAN: Patient has been getting IV morphine at scheduled times and fentanyl patch has been increased to 37.5 mcg today. C/w bowel regimen. We'll continue with IV hydration and antiemetics for her nausea and vomiting. PET scan done today - results to be reviewed and discussed by Onchology - progression of the disease. Further recommendations based on the clinical course. Overall prognosis is very poor. Palliative care was consulted for pain control Time with Patient: Greater than 30
== END 2018-07-11 15:58 | disposition home or self-care (01) | DRG 947 ==
LOC: EC 09:54 → 5ONC 12:56 → 3NMEDONC 07-05 12:36
PROVIDERS: ADMIT Hospitalist; ATTEND Hospitalist
DX: G89.3 Neoplasm related pain (acute) (chronic) (principal); E43 Unspecified severe protein-calorie malnutrition; C78.7 Secondary malignant neoplasm of liver and intrahepatic bile duct; C78.00 Secondary malignant neoplasm of unspecified lung; Z68.1 Body mass index [BMI] 19.9 or less, adult; J90 Pleural effusion, not elsewhere classified; C79.51 Secondary malignant neoplasm of bone; R64 Cachexia; R18.8 Other ascites; D72.829 Elevated white blood cell count, unspecified; F32.9 Major depressive disorder, single episode, unspecified; F41.9 Anxiety disorder, unspecified; M54.9 Dorsalgia, unspecified; K59.00 Constipation, unspecified; N95.9 Unspecified menopausal and perimenopausal disorder; Z92.21 Personal history of antineoplastic chemotherapy; Z87.891 Personal history of nicotine dependence; Z85.3 Personal history of malignant neoplasm of breast; Z98.51 Tubal ligation status; Z88.0 Allergy status to penicillin; Z88.6 Allergy status to analgesic agent; Z91.040 Latex allergy status; Z80.3 Family history of malignant neoplasm of breast; Z82.49 Family history of ischemic heart disease and other diseases of the circulatory system; Z83.3 Family history of diabetes mellitus; Z80.49 Family history of malignant neoplasm of other genital organs
CPT/HCPCS: 36415; 71046; 71275; 74177; 76700; 78306; 80048; 80053; 81001; 81003; 82550; 82553; 83605; 84484; 85025; 85610; 85730; 86300; 87040; 87086; 93005; 94760; 96361; 96365; 96375; 96376; 99285